=== PATIENT | male | born 1990 | race Caucasian/White ===

== ENCOUNTER 2021-08-18 17:27 | Emergency (ER) | payer OTHER, SELFPAY ==
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
[2021-08-18 17:40] VITALS: BP 140/79; PULSE 79; RESP 18; TEMP 36.4; O2SAT 88; BMI 32.1
[2021-08-18 17:51] VITALS: O2SAT 94
[2021-08-18 18:45] VITALS: PULSE 80; O2SAT 88
[2021-08-18 18:53] LABS: COVID-19 Test Negative (Negative)
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
[2021-08-18] MEDS: Albuterol/Iprat 2.5/0.5MG 3 ML AMPUL.NEB INHALE (19:24)
[2021-08-18 19:27] VITALS: PULSE 80; O2SAT 90
[2021-08-18] MEDS: methylPREDNISolone Sod Succ 125 MG/2 ML VIAL IVPUSH (19:34)
[2021-08-18 19:41] LABS: MANUAL DIFF FLAG NO
[2021-08-18 19:42] LABS: Basophils Absolute Auto 0.1 X10*3/uL (0.0-0.2); Basophils Percent Auto 0.5 % (0-2); Eosinophils Absolute Auto 0.3 X10*3/uL (0.0-0.4); Eosinophils Percent Auto 2.7 % (0-4); Hematocrit 40.6 % (42.0-52.0); Hemoglobin 13.2 g/dl (14.0-18.0); Imm Gran Abs Auto 0.03 X10*3/uL (0.00-0.03); Imm Gran Pct Auto 0.3 % (0.0-0.4); Lymphocytes Absolute Auto 2.2 X10*3/uL (1.2-4.9); Lymphocytes Percent Auto 22.3 % (20-40); Mean Corpuscular HGB Conc 32.5 g/dl (31.0-36.0); Mean Corpuscular Hemoglobin 29.1 pg (27.0-33.0); Mean Corpuscular Volume 89.6 fL (80.0-98.0); Mean Platelet Volume 11.1 fL (9.4-12.4); Monocytes Absolute Auto 0.7 X10*3/uL (0.1-1.2); Monocytes Percent Auto 6.9 % (2-11); Neutrophils Absolute Auto 6.8 x10*3/uL (2.0-8.3); Neutrophils Percent Auto 67.3 % (45-73); Platelet Count 249 X10*3/uL (160-400); Red Blood Count 4.53 X10*6/uL (4.60-5.80); Red Cell Distribution Width 12.3 % (11.0-16.0)
[2021-08-18 19:57] LABS: Lactic Acid 1.2 mmol/L (0.5-2.0)
[2021-08-18 20:05] LABS: Alanine Aminotransferase 19 U/L (0-40); Albumin Level 4.3 g/dL (3.5-5.0); Alkaline Phosphatase 99 U/L (39-117); Anion Gap 13 (12-20); Aspartate Amino Transferase 30 U/L (5-37); Bilirubin Direct 0.2 mg/dL (0.0-0.5); Bilirubin Total 0.5 mg/dL (0.0-1.0); Blood Urea Nitrogen 12 mg/dL (9-16); Calcium 9.2 mg/dL (8.4-10.2); Carbon Dioxide 30 mmol/L (22-29); Chloride 100 mmol/L (96-108); Creatinine Clr Calc Pharmacy 169.9; Estimated Glomerular Filt Rate > 60; Glucose Random 127 mg/dL (60-115); Potassium 4.4 mmol/L (3.3-5.1); Sodium 139 mmol/L (135-145); Total Protein 7.9 g/dL (6.5-8.0)
[2021-08-19 00:18] VITALS: O2SAT 96
== END 2021-08-19 00:38 | disposition home or self-care (01) ==
PROVIDERS: Nurse Practitioner Family; Emergency Provider Internal Medicine
DX: S00.93XA Contusion of unspecified part of head, initial encounter (principal); G44.309 Post-traumatic headache, unspecified, not intractable; M54.6 Pain in thoracic spine; V43.52XA Car driver injured in collision with other type car in traffic accident, initial encounter; Y93.9 Activity, unspecified; Y92.410 Unspecified street and highway as the place of occurrence of the external cause; Y99.9 Unspecified external cause status; Z20.822 Contact with and (suspected) exposure to COVID-19; Z79.899 Other long term (current) drug therapy
CPT/HCPCS: 36415; 70450; 70486; 71250; 72125; 80048; 80076; 83605; 85025; 87040; 87635; 94640; 96374; 99283; 99284; J2930

== ENCOUNTER 2023-06-09 15:56 | Emergency (ER) | payer OTHER, SELFPAY ==
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
[2023-06-09 16:22] VITALS: BP 148/80; PULSE 70; RESP 18; TEMP 36.2; O2SAT 97; BMI 32.1
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
[2023-06-09] MEDS: Cyclobenzaprine HCl 10 MG TABLET PO (19:33)
[2023-06-09] MEDS: Ketorolac Tromethamine 30 MG/ML VIAL IM (19:33)
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
[2023-06-09 20:56] VITALS: BP 115/68; PULSE 62; RESP 18; TEMP 36.6; O2SAT 98
== END 2023-06-09 22:27 | disposition home or self-care (01) ==
PROVIDERS: Emergency Provider Emergency Medicine
DX: S39.012A Strain of muscle, fascia and tendon of lower back, initial encounter (principal); S13.4XXA Sprain of ligaments of cervical spine, initial encounter; M54.2 Cervicalgia; V43.62XA Car passenger injured in collision with other type car in traffic accident, initial encounter; Y93.9 Activity, unspecified; Y92.410 Unspecified street and highway as the place of occurrence of the external cause; Y99.9 Unspecified external cause status; Z79.899 Other long term (current) drug therapy
CPT/HCPCS: 72100; 72125; 96372; 99283; 99284; J1885

== ENCOUNTER 2023-10-02 14:43 | Emergency (ER) | payer OTHER, SELFPAY ==
--- NOTE | ~2023-10-02 | XR_ITS ---
EXAMINATION: XR WRIST, LEFT XR HAND, LEFT CLINICAL INFORMATION: Atherosclerotic. Pain COMPARISON: None available. TECHNIQUE: PA, lateral, and oblique views of the left wrist and PA, lateral, and oblique views of the left hand FINDINGS: 3 views of the left hand and left wrist show no radiopaque foreign body. No fracture, dislocation or destructive process. There does appear to be very mild dorsal soft tissue swelling. XR/XR hand wrist LT IMPRESSION: No osseous abnormalities.
--- NOTE | 2023-10-02 15:49 | ED.GENADULT ---
HPI - General Adult General Chief complaint: Animal Bite Stated complaint: Dog bite L hand red/swollen Time Seen by Provider: 10/02/23 17:19 Source: patient, RN notes reviewed and old records reviewed Mode of arrival: ambulatory History of Present Illness HPI narrative: 33-year-old male with no significant past medical history presenting to the ED complaining of dog bite to left hand 2 days ago with worsening erythema/swelling and discomfort. Reports was bit by brother's dog who is up-to-date on vaccinations. Patient himself is up-to-date on vaccinations. Denies drainage from area, fever/chills, numbness/tingling. Related Data Previous Rx's Medication Instructions Recorded cyclobenzaprine 10 mg tablet 10 mg PO TID PRN muscle spasm #12 08/19/21 tabs ibuprofen 600 mg tablet 600 mg PO Q8H PRN pain #20 tabs 08/19/21 lidocaine 5 % topical patch 1 patch topical DAILY #15 ea 08/19/21 cyclobenzaprine 10 mg tablet 10 mg PO TID PRN muscle spasm #10 06/09/23 tabs amoxicillin 875 mg-potassium 1 tab PO BID 7 days #14 tabs 10/02/23 clavulanate 125 mg tablet Allergies Allergy/AdvReac Type Severity Reaction Status Date / Time acetaminophen [From Tylenol] AdvReac Gastrointestinal Verified 10/02/23 15:52 Upset Review of Systems Review of Systems: Constitutional: No Fever, No Chills ENT/Mouth: No Ear Pain, No Nasal Congestion, No sore throat, No Rhinorrhea, No Swallowing Difficulty Cardiovascular: No Chest Pain, No SOB Respiratory: No Cough Gastrointestinal: No Nausea, No Vomiting, No Abdominal pain Musculoskeletal: + joint pain, No Myalgias, + Joint Swelling Skin: +Skin Lesions, No rash Neuro: No Weakness, No Numbness, No Paresthesias Yes all other systems are reviewed and are negative Constitutional: Constitutional: Reports as per [facility] Past Medical History Attestation statement: The following information was validated with the patient. Source: old records reviewed Medical History Patient denies medical problems Social History Social History Advance Directives: No Advance Directives Information Provided: No Physical Exam ED Vital Signs: Vital Signs - 24 hr 10/02/23 15:50 10/02/23 18:25 Temperature 98.9 F 98.7 F Pulse Rate 71 72 Respiratory Rate 20 18 Blood Pressure 136/85 132/80 Pulse Oximetry 95 98 Oxygen Delivery Method Room Air Room Air BMI result Body Mass Index 30.6 Const General: cooperative, healthy appearing and no acute distress Orientation/consciousness: patient oriented x3 Limitations: no limitations HENMT Head: Yes normal to inspection and Yes atraumatic Ears: hearing grossly normal bilaterally General nose exam: Normal external nose present Face and sinus: Yes normal facial exam Eyes General: appearance normal, both eyes and all related structures EOM: EOMs intact bilaterally Neck Neck: Yes normal visual inspection and Yes no meningeal signs Resp Effort & Inspection: normal respiratory effort and no respiratory distress Cardio Rate: regular rate Peripheral pulses: radial pulses present and ulnar radial pulses present Skin Other: Please refer to image above. Puncture wound noted to 3rd MCP with surrounding erythema extending to wrist. No fluctuance/induration or active drainage. Full range of motion to all digits, wrist, and finger to thumb opposition intact. Neurovascular intact. No streaking/lymphangitis or crepitus Rashes: no rashes Neuro General: patient oriented x3, tone normal and no meningeal signs Cranial nerves: Yes CN's II-XII intact bilaterally Gait exam (Neuro): Normal gait present Extrem General: Yes normal to inspection Course Course Course Narrative: RME:?here w/ dog bite to left hand x2 days. admits to trying to break up a fight between his dog and his brothers dog when his brother's dog bit hit left hand. dogs UTD w/ vaccinations. +puncture wound to base of left 3rd mcp. dorsal left hand erythematous, swollen. no streaking. full rom intact to wrist and hand. finger to thumb opposition intact. Full HPI, ROS and PE to be performed by the primary ED provider. -1721--no leukocytosis. H&H stable. CRP elevated to 7.3 XR hand wrist LT IMPRESSION: No osseous abnormalities. > case discussed with orthopedic on-call, Dr. Valladares who does not cover hand. No hand coverage through the New Year. Will consult [facility] hand to ensure follow-up >> spoke with [facility] plastic surgeon/hand on-call Dr. Reeder, patient can have follow-up outpatient in their office as soon as Friday10/07/23, otherwise strict return precautions discussed with patient and if symptoms persist or worsen, he develops pain/decreased ROM is instructed to go to [facility] ED where they have hand coverage. Dr. Reeder (& team) environmental professional through the weekend. No need for transfer at this time Medical Decision Making Medical Decision Making MDM Narrative: 33-year-old male with no significant past medical history presenting to the ED complaining of dog bite to left hand 2 days ago with worsening erythema/swelling and discomfort. On exam vital signs stable, NAD, nontoxic appearing, physical exam as noted above. Please refer to image. Concern for dog bite with surrounding cellulitis. Lower suspicion for tenosynovitis with full range of motion intact. Unlikely deeper abscess at this time. No evidence of lymphangitis Plan: Labs, lactic/blood cultures, x-ray, orthopedic consult Please refer to course for remaining clinical decision making, interpretation of labs/imaging results, and discussions with consultants and/or family members. Differential Diagnosis Differential Diagnoses: The differential diagnosis associated with the presentation includes As above Admission/Observation Consideration of admission/observation: Escalation of care including admission/observation considered Lab Data [facility] Lab Attestation statement: I reviewed the patient's lab results. 10/02/23 16:57 10/02/23 16:56 Labs: Lab Results 10/02/23 10/02/23 Range/Units 16:56 16:57 WBC 8.5 (4.8-10.8) X10*3/uL RBC 4.48 L (4.60-5.80) X10*6/uL Hgb 13.0 L (14.0-18.0) g/dl Hct 39.9 L (42.0-52.0) % MCV 89.1 (80.0-98.0) fL MCH 29.0 (27.0-33.0) pg MCHC 32.6 (31.0-36.0) g/dl RDW 11.5 (11.0-16.0) % Plt Count 305 (160-400) X10*3/uL MPV 10.6 (9.4-12.4) fL Immature Gran % (Auto) 0.2 (0.0-0.4) % Neut % (Auto) 71.4 (45-73) % Lymph % (Auto) 16.6 L (20-40) % Haines % (Auto) 7.4 (2-11) % Eos % (Auto) 3.9 (0-4) % Baso % (Auto) 0.5 (0-2) % Lymph # (Auto) 1.4 (1.2-4.9) X10*3/uL Haines # (Auto) 0.6 (0.1-1.2) X10*3/uL Eos # (Auto) 0.3 (0.0-0.4) X10*3/uL Baso # (Auto) 0.0 (0.0-0.2) X10*3/uL Abs Immat Gran (auto) 0.02 (0.00-0.03) X10*3/uL Absolute Neuts (auto) 6.1 (2.0-8.3) x10*3/uL Absolute Nucleated RBC 0.000 (0.0-0.012) X10*3/uL Nucleated RBC % (auto) 0.0 (0.0-0.2) /100WBC PT 13.0 (11.1-13.3) SEC INR 1.1 (0.9-1.1) Sodium 137 (135-145) mmol/L Potassium 4.4 (3.3-5.1) mmol/L Chloride 102 (96-108) mmol/L Carbon Dioxide 24 (22-29) mmol/L Anion Gap 15 (12-20) BUN 10 (9-16) mg/dL Creatinine 0.69 (0.5-1.4) mg/dL Estim Creat Clear Calc 179.6 Estimated GFR > 60 Random Glucose 118 H (60-115) mg/dL Lactic Acid 1.2 (0.5-2.0) mmol/L Calcium 9.2 (8.4-10.2) mg/dL Magnesium 1.9 (1.6-2.6) mg/dL Total Bilirubin 0.6 (0.0-1.0) mg/dL AST 22 (5-37) U/L ALT 10 (0-40) U/L Alkaline Phosphatase 67 (39-117) U/L C-Reactive Protein 7.34 H (< or = 0.50) mg/dL Total Protein 8.3 H (6.5-8.0) g/dL Albumin 4.0 (3.5-5.0) g/dL Lipase 10 (8-78) U/L Independent Interpretation I performed an independent interpretation of an: Plain X-Ray Radiology Impression Discussion of test interpretation with radiology: I have reviewed the radiologist's reading. External Record Review External record reviewed: Inpatient record, Office record, Outpatient record, Prior outpatient labs, Prior outpatient radiology, Primary care record and Outside ED record Tests considered The following testing was considered but not selected: As above Prescription Management I considered prescription management with: Pain Medication and Antibiotic Discharge Plan Discharge Clinical Impression: Dog bite, Cellulitis Patient Disposition: Home, Self-Care Instructions: Animal Bite (ED), Cellulitis (DC) Additional Instructions: Dog bites have very high likelihood of getting infected. IF YOU DEVELOP WORSENING REDNESS/SWELLING, DECREASED RANGE OF MOTION/PAIN WITH RANGE OF MOTION, FEVER DRAINAGE RETURN TO THE ED IMMEDIATELY. YOU SHOULD RETURN/GO TO [facility] EMERGENCY DEPARTMENT IF THIS DEVELOPS [place] DOES NOT HAVE HAND COVERAGE WARDROBE COORDINATOR THROUGH THE WEEKEND. We spoke with the hand on-call out operator at [facility]. You can follow-up in their office outpatient. Please call [phone] to establish follow-up for Friday next week Prescriptions: New amoxicillin-pot clavulanate 875-125 mg tablet 1 tab PO BID 7 Days Qty: 14 0RF No Action cyclobenzaprine 10 mg tablet 10 mg PO TID PRN (Reason: muscle spasm) Qty: 12 0RF lidocaine 5 % adhesive patch,medicated 1 patch topical DAILY Qty: 15 0RF Rx Instructions: leave on most painful area for up to 12 hrs ibuprofen 600 mg tablet 600 mg PO Q8H PRN (Reason: pain) Qty: 20 0RF cyclobenzaprine 10 mg tablet 10 mg PO TID PRN (Reason: muscle spasm) Qty: 10 0RF Referrals: [facility] Plastic Surgery [Outside] Eulalia Partida MD [Physician] -
[2023-10-02 15:50] VITALS: BP 136/85; PULSE 71; RESP 20; TEMP 37.2; O2SAT 95; BMI 30.6
[2023-10-02 17:02] LABS: MANUAL DIFF FLAG NO
[2023-10-02 17:03] LABS: Basophils Percent Auto 0.5 % (0-2); Eosinophils Absolute Auto 0.3 X10*3/uL (0.0-0.4); Eosinophils Percent Auto 3.9 % (0-4); Hematocrit 39.9 % (42.0-52.0); Imm Gran Abs Auto 0.02 X10*3/uL (0.00-0.03); Imm Gran Pct Auto 0.2 % (0.0-0.4); Lymphocytes Absolute Auto 1.4 X10*3/uL (1.2-4.9); Lymphocytes Percent Auto 16.6 % (20-40); Mean Corpuscular HGB Conc 32.6 g/dl (31.0-36.0); Mean Corpuscular Volume 89.1 fL (80.0-98.0); Mean Platelet Volume 10.6 fL (9.4-12.4); Monocytes Absolute Auto 0.6 X10*3/uL (0.1-1.2); Monocytes Percent Auto 7.4 % (2-11); Neutrophils Absolute Auto 6.1 x10*3/uL (2.0-8.3); Neutrophils Percent Auto 71.4 % (45-73); Platelet Count 305 X10*3/uL (160-400); Red Blood Count 4.48 X10*6/uL (4.60-5.80); Red Cell Distribution Width 11.5 % (11.0-16.0); White Blood Count 8.5 X10*3/uL (4.8-10.8)
[2023-10-02 17:09] LABS: INTERNATIONAL NORM RATIO 1.1 (0.9-1.1)
[2023-10-02 17:12] LABS: Lactic Acid 1.2 mmol/L (0.5-2.0)
[2023-10-02 17:17] LABS: Alanine Aminotransferase 10 U/L (0-40); Alkaline Phosphatase 67 U/L (39-117); Anion Gap 15 (12-20); Aspartate Amino Transferase 22 U/L (5-37); Bilirubin Total 0.6 mg/dL (0.0-1.0); Blood Urea Nitrogen 10 mg/dL (9-16); C Reactive Protein 7.34 mg/dL (< or = 0.50); Calcium 9.2 mg/dL (8.4-10.2); Carbon Dioxide 24 mmol/L (22-29); Chloride 102 mmol/L (96-108); Creatinine Clr Calc Pharmacy 179.6; Estimated Glomerular Filt Rate > 60; Glucose Random 118 mg/dL (60-115); Lipase 10 U/L (8-78); Magnesium 1.9 mg/dL (1.6-2.6); Potassium 4.4 mmol/L (3.3-5.1); Sodium 137 mmol/L (135-145); Total Protein 8.3 g/dL (6.5-8.0)
--- NOTE | 2023-10-02 17:58 | PC.NURSE ---
tech bedside obtaining 2nd set of cultures.
[2023-10-02 18:25] VITALS: BP 132/80; PULSE 72; RESP 18; TEMP 37.1; O2SAT 98
[2023-10-02 20:59] LABS: Erythrocyte Sedimentation Rate 53 MM/HR (0-15)
== END 2023-10-02 18:58 | disposition home or self-care (01) ==
PROVIDERS: Physician Assistant Medical; Emergency Provider Internal Medicine
DX: S61.452A Open bite of left hand, initial encounter (principal); L03.114 Cellulitis of left upper limb; W54.0XXA Bitten by dog, initial encounter; Y93.9 Activity, unspecified; Y92.9 Unspecified place or not applicable; Y99.9 Unspecified external cause status; Z79.899 Other long term (current) drug therapy
CPT/HCPCS: 36415; 73110; 73130; 80053; 83605; 83690; 83735; 85025; 85610; 85652; 86140; 87040; 99282; 99283

== ENCOUNTER 2023-10-13 18:52 | Emergency (ER) | payer OTHER, SELFPAY ==
--- NOTE | ~2023-10-13 | XR_ITS ---
EXAMINATION: XR CHEST 2 VIEW CLINICAL INFORMATION: Cough, shortness of breath COMPARISON: 03/31/2019 TECHNIQUE: PA and lateral views of the chest obtained. FINDINGS: The lungs are clear. There are no pleural effusions. The cardiomediastinal silhouette is normal. XR/XR chest 2V IMPRESSION: No acute cardiopulmonary disease.
--- NOTE | 2023-10-13 19:36 | ED.GENADULT ---
HPI - General Adult General Chief complaint: Dyspnea Stated complaint: sob Time Seen by Provider: 10/13/23 23:52 Source: patient Mode of arrival: ambulatory Limitations: no limitations History of Present Illness HPI narrative: Patient history of asthma ran out of her inhaler been short of breath and wheezing for last 2 days cough with mucopurulent phlegm with rhinorrhea no fever no chills Related Data Previous Rx's Medication Instructions Recorded cyclobenzaprine 10 mg tablet 10 mg PO TID PRN muscle spasm #12 08/19/21 tabs ibuprofen 600 mg tablet 600 mg PO Q8H PRN pain #20 tabs 08/19/21 lidocaine 5 % topical patch 1 patch topical DAILY #15 ea 08/19/21 cyclobenzaprine 10 mg tablet 10 mg PO TID PRN muscle spasm #10 06/09/23 tabs amoxicillin 875 mg-potassium 1 tab PO BID 7 days #14 tabs 10/02/23 clavulanate 125 mg tablet albuterol sulfate 2.5 mg/3 mL 2.5 mg (3 mL) inhalation Q4-6H PRN 10/14/23 (0.083 %) solution for nebulization shortness of breath or wheezing #90 mL albuterol sulfate 90 mcg/actuation 2 puff inhalation Q4-6H PRN 10/14/23 aerosol inhaler (ProAir HFA) shortness of breath or wheezing #8.5 grams benzonatate 200 mg capsule 200 mg PO TID PRN cough #30 caps 10/14/23 nebulizers #1 ea 10/14/23 prednisone 20 mg tablet 40 mg (2 x 20 mg) PO DAILY #10 tabs 10/14/23 Allergies Allergy/AdvReac Type Severity Reaction Status Date / Time acetaminophen [From Tylenol] AdvReac Gastrointestinal Verified 10/13/23 23:57 Upset Review of Systems Review of Systems: Yes all other systems are reviewed and are negative PMFSH Past Medical History Onset Date is defined in the Problem List Problems that require an onset date and time if occurred within 24 hrs of arrival to the ED Aortic Dissection and Rupture; Neurologic impairment; Cardiopulmonary Arrest; Endotracheal Intubation; Insertion or Replacement of Mechanical Circulatory Assist Device Medical History Patient denies medical problems Social History Social History Smoked in Last 30 Days: No Use of substances other than those prescribed or required for medical reasons: No Advance Directives: No Advance Directives Information Provided: No Physical Exam ED Vital Signs: Vital Signs - 24 hr 10/13/23 19:37 10/13/23 23:47 Temperature 98.2 F 98.8 F Pulse Rate 82 88 Respiratory Rate 20 20 Blood Pressure 130/82 123/90 H Pulse Oximetry 92 91 L Oxygen Delivery Method Room Air Room Air BMI result Body Mass Index 28.2 Appearance: Alert. Oriented X3. No acute distress. ENT: Pharynx normal. Oral Mucosa moist clear rhinorrhea Neck: Normal inspection. Neck supple. CVS: Normal heart rate and rhythm. Pulses normal. Respiratory: No respiratory distress. Equal air entry bilateral, bilateral wheezing no rales Abdomen: Soft and nontender. Bowel sounds are present, no mass palpable, no CVA tenderness Skin: Skin warm and dry. Normal skin color. Normal skin turgor. Extremities: No lower extremity edema. No calf tenderness Neuro: Oriented X 3. Course Course Course Narrative: RME performed by Kylee Miller PA-C. Patient is a 33 year old assigned male at presenting to the emergency department with shortness of breath and a cough. Detailed physical exam and review of systems are deferred to the grain weigher. Labs, imaging, and swabs ordered. Patient placed back in the waiting room pending room availability and results. Medications Administered Discontinued Medications Generic Name Dose Route Start Last Admin Trade Name Freq PRN Reason Stop Dose Admin Albuterol Sulfate 5 mg/ 7.5 mg 10/14/23 00:25 10/14/23 00:29 Albuterol Sulfate 2.5 mg INHALE 10/14/23 00:26 7.5 mg ONCE ONE Administration Albuterol Sulfate 2 puff 10/14/23 00:35 10/14/23 00:40 Albuterol Sulfate 90 Mcg 8 Gm Inhaler INHALE 10/14/23 00:36 2 puff ONCE ONE Administration Benzonatate 200 mg 10/14/23 00:12 10/14/23 00:30 Benzonatate 100 Mg Capsule PO 10/14/23 00:13 200 mg ONCE ONE Administration Magnesium Sulfate 2 gm in 50 mls @ 150 mls/hr 10/14/23 00:12 10/14/23 00:50 Magnesium Sulfate/H2o IV 10/14/23 00:31 Infused ONCE ONE Infusion Methylprednisolone Sodium Succinate 125 mg 10/14/23 00:12 10/14/23 00:30 Methylprednisolone Sod Succ 125 Mg/2 Ml Vial IVPUSH 10/14/23 00:13 125 mg ONCE ONE Administration Medical Decision Making Medical Decision Making [facility] Narrative: Patient with history of asthma nonsmoker desaturated to 88% at room air will give him nebulizing treatment reached evaluated. Chest x-ray labs are stable unlikely PE has no risk factors after nebulizing treatment patient is saturating 94% at room air discharge patient home steroids nebulizer and inhaler Differential Diagnosis Differential Diagnoses: The differential diagnosis associated with the presentation includes Asthma/pneumonia/bronchitis Lab Data [facility] Lab Attestation statement: I reviewed the patient's lab results. 10/13/23 20:27 10/13/23 20:27 Labs: Lab Results 10/13/23 Range/Units 20:27 WBC 10.5 (4.8-10.8) X10*3/uL RBC 4.66 (4.60-5.80) X10*6/uL Hgb 13.4 L (14.0-18.0) g/dl Hct 41.2 L (42.0-52.0) % MCV 88.4 (80.0-98.0) fL MCH 28.8 (27.0-33.0) pg MCHC 32.5 (31.0-36.0) g/dl RDW 11.8 (11.0-16.0) % Plt Count 329 (160-400) X10*3/uL MPV 10.6 (9.4-12.4) fL Immature Gran % (Auto) 0.3 (0.0-0.4) % Neut % (Auto) 71.5 (45-73) % Lymph % (Auto) 17.4 L (20-40) % Esmeralda % (Auto) 8.5 (2-11) % Eos % (Auto) 1.8 (0-4) % Baso % (Auto) 0.5 (0-2) % Lymph # (Auto) 1.8 (1.2-4.9) X10*3/uL Esmeralda # (Auto) 0.9 (0.1-1.2) X10*3/uL Eos # (Auto) 0.2 (0.0-0.4) X10*3/uL Baso # (Auto) 0.1 (0.0-0.2) X10*3/uL Abs Immat Gran (auto) 0.03 (0.00-0.03) X10*3/uL Absolute Neuts (auto) 7.5 (2.0-8.3) x10*3/uL Absolute Nucleated RBC 0.000 (0.0-0.012) X10*3/uL Nucleated RBC % (auto) 0.0 (0.0-0.2) /100WBC Sodium 141 (135-145) mmol/L Potassium 4.0 (3.3-5.1) mmol/L Chloride 96 (96-108) mmol/L Carbon Dioxide 28 (22-29) mmol/L Anion Gap 21 H (12-20) BUN 9 (9-16) mg/dL Creatinine 0.76 (0.5-1.4) mg/dL Estim Creat Clear Calc 157.0 Estimated GFR > 60 Random Glucose 141 H (60-115) mg/dL Calcium 10.0 D (8.4-10.2) mg/dL Magnesium 1.8 (1.6-2.6) mg/dL Total Bilirubin 0.8 (0.0-1.0) mg/dL AST 15 (5-37) U/L ALT 7 (0-40) U/L Alkaline Phosphatase 81 (39-117) U/L Troponin I High Sens < 2.7 (<3.5-35.0) ng/L B-Natriuretic Peptide < 10 (<100) pg/mL Total Protein 8.6 H (6.5-8.0) g/dL Albumin 4.0 (3.5-5.0) g/dL Influenza Type A (PCR) NEGATIVE (Negative) Influenza Type B (PCR) NEGATIVE (Negative) RSV RNA Qual (PCR) NEGATIVE (Negative) SARS-CoV-2 RNA (RT-PCR) NEGATIVE (Negative) Discharge Plan Discharge Clinical Impression: Asthma with exacerbation Patient Disposition: Home, Self-Care Instructions: Asthma (ED) Additional Instructions: Nebulizing treatment as advised Prednisone as prescribed Cough drops as prescribed Report to the ER if increased shortness of breath Prescriptions: New (DME) nebulizers Misc See Rx Instructions .Route Qty: 1 0RF Rx Instructions: As directed albuterol sulfate 2.5 mg /3 mL (0.083 %) solution for nebulization 2.5 mg inhalation Q4-6H PRN (Reason: shortness of breath or wheezing) Qty: 90 0RF benzonatate 200 mg capsule 200 mg PO TID PRN (Reason: cough) Qty: 30 0RF prednisone 20 mg tablet 40 mg PO DAILY Qty: 10 0RF albuterol sulfate [ProAir HFA] 90 mcg/actuation HFA aerosol inhaler 2 puff inhalation Q4-6H PRN (Reason: shortness of breath or wheezing) Qty: 8.5 0RF No Action cyclobenzaprine 10 mg tablet 10 mg PO TID PRN (Reason: muscle spasm) Qty: 12 0RF lidocaine 5 % adhesive patch,medicated 1 patch topical DAILY Qty: 15 0RF Rx Instructions: leave on most painful area for up to 12 hrs ibuprofen 600 mg tablet 600 mg PO Q8H PRN (Reason: pain) Qty: 20 0RF amoxicillin-pot clavulanate 875-125 mg tablet 1 tab PO BID 7 Days Qty: 14 0RF cyclobenzaprine 10 mg tablet 10 mg PO TID PRN (Reason: muscle spasm) Qty: 10 0RF
[2023-10-13 19:37] VITALS: BP 130/82; PULSE 82; RESP 20; TEMP 36.8; O2SAT 92; BMI 28.2
--- NOTE | 2023-10-13 19:39 | ECG_ITS ---
Test Reason : SOB Blood Pressure : / mmHG Vent. Rate : 082 BPM Atrial Rate : 082 BPM P-R Int : 148 ms QRS Dur : 088 ms QT Int : 366 ms P-R-T Axes : 050 058 034 degrees QTc Int : 427 ms Normal sinus rhythm Normal ECG No previous ECGs available Referred By: Kylee Miller Electronically Signed By:ASIF FLOWER MD
--- NOTE | 2023-10-13 20:30 | MHC.EDTECH ---
Patient brought into triage area, EKG was taken and signed by provider,labs were obtained and sent to lab.
[2023-10-13 20:35] LABS: MANUAL DIFF FLAG NO
[2023-10-13 20:57] LABS: Basophils Absolute Auto 0.1 X10*3/uL (0.0-0.2); Basophils Percent Auto 0.5 % (0-2); Eosinophils Absolute Auto 0.2 X10*3/uL (0.0-0.4); Eosinophils Percent Auto 1.8 % (0-4); Hematocrit 41.2 % (42.0-52.0); Hemoglobin 13.4 g/dl (14.0-18.0); Imm Gran Abs Auto 0.03 X10*3/uL (0.00-0.03); Imm Gran Pct Auto 0.3 % (0.0-0.4); Lymphocytes Absolute Auto 1.8 X10*3/uL (1.2-4.9); Lymphocytes Percent Auto 17.4 % (20-40); Mean Corpuscular HGB Conc 32.5 g/dl (31.0-36.0); Mean Corpuscular Hemoglobin 28.8 pg (27.0-33.0); Mean Corpuscular Volume 88.4 fL (80.0-98.0); Mean Platelet Volume 10.6 fL (9.4-12.4); Monocytes Absolute Auto 0.9 X10*3/uL (0.1-1.2); Monocytes Percent Auto 8.5 % (2-11); Neutrophils Absolute Auto 7.5 x10*3/uL (2.0-8.3); Neutrophils Percent Auto 71.5 % (45-73); Platelet Count 329 X10*3/uL (160-400); Red Blood Count 4.66 X10*6/uL (4.60-5.80); Red Cell Distribution Width 11.8 % (11.0-16.0); White Blood Count 10.5 X10*3/uL (4.8-10.8)
[2023-10-13 21:02] LABS: Alanine Aminotransferase 7 U/L (0-40); Alkaline Phosphatase 81 U/L (39-117); Anion Gap 21 (12-20); Aspartate Amino Transferase 15 U/L (5-37); Bilirubin Total 0.8 mg/dL (0.0-1.0); Blood Urea Nitrogen 9 mg/dL (9-16); Carbon Dioxide 28 mmol/L (22-29); Chloride 96 mmol/L (96-108); Estimated Glomerular Filt Rate > 60; Glucose Random 141 mg/dL (60-115); Magnesium 1.8 mg/dL (1.6-2.6); Sodium 141 mmol/L (135-145); Total Protein 8.6 g/dL (6.5-8.0)
[2023-10-13 21:06] LABS: B Type Natriuretic Peptide < 10 pg/mL (<100)
[2023-10-13 21:08] LABS: Troponin-I High Sensitivity < 2.7 ng/L (<3.5-35.0)
[2023-10-13 21:21] LABS: Influenza A PCR NEGATIVE (Negative); Influenza B PCR NEGATIVE (Negative); Resp Syncy Virus RNA Qual PCR NEGATIVE (Negative); SARS COV2 PCR INHOUSE NEGATIVE (Negative)
[2023-10-13 23:47] VITALS: BP 123/90; PULSE 88; RESP 20; TEMP 37.1; O2SAT 91
--- NOTE | 2023-10-14 00:04 | PC.NURSE ---
at bedside for primary eval.
--- NOTE | 2023-10-14 00:25 | PC.NURSE ---
IV established, RT at bedside.
[2023-10-14] MEDS: Albuterol Sulfate 5 MG, Albuterol Sulfate (0.083%) 2.5 MG 7.5 MG INHALE (00:29)
[2023-10-14] MEDS: Benzonatate 100 MG CAPSULE 200 MG PO (00:30)
[2023-10-14] MEDS: methylPREDNISolone Sod Succ 125 MG/2 ML VIAL IVPUSH (00:30)
[2023-10-14] MEDS: Magnesium Sulfate/H2O 2 GM/50 ML PIGGYBACK IV (00:30)
--- NOTE | 2023-10-14 00:34 | PC.NURSE ---
Medicated per MAR.
[2023-10-14] MEDS: Albuterol Sulfate 90 MCG 8 GM INHALER 2 PUFF INHALE (00:40)
[2023-10-14 01:56] VITALS: BP 113/79; PULSE 79; RESP 16; O2SAT 93
== END 2023-10-14 01:58 | disposition home or self-care (01) ==
PROVIDERS: Physician Assistant Medical; Emergency Provider Internal Medicine
DX: J45.901 Unspecified asthma with (acute) exacerbation (principal); R06.2 Wheezing; R05.9 Cough, unspecified; R06.02 Shortness of breath; Z20.822 Contact with and (suspected) exposure to COVID-19; Z20.828 Contact with and (suspected) exposure to other viral communicable diseases; Z79.899 Other long term (current) drug therapy
CPT/HCPCS: 0241U; 71046; 80053; 83735; 83880; 84484; 85025; 93005; 96365; 96374; 99284; 99285; J2930; J3475

== ENCOUNTER → 2023-10-13 19:39 | Outpatient (BNV) | payer OTHER, SELFPAY | PROVIDERS: Emergency Provider Internal Medicine; Visit Provider Internal Medicine Cardiovascular Disease | DX: R06.02 Shortness of breath (principal) | CPT/HCPCS: 93010 ==

== ENCOUNTER 2023-11-24 15:02 | Emergency (ER) | payer OTHER, SELFPAY ==
--- NOTE | ~2023-11-24 | XR_ITS ---
EXAMINATION: XR CHEST CLINICAL INFORMATION: Shortness of breath. COMPARISON: Chest radiograph 10/13/2023. TECHNIQUE: 2 views of the chest were obtained. FINDINGS: Normal heart size. Patchy airspace opacities projecting over the right middle lobe. Clear left lung. No pleural effusion or pneumothorax. No acute osseous findings. XR/XR chest 2V IMPRESSION: Patchy airspace opacities in the right middle lobe concerning for aspiration or pneumonia in the appropriate clinical context. Recommend short-term follow-up chest radiograph.
[2023-11-24 15:50] VITALS: BP 124/77; PULSE 72; RESP 16; TEMP 35.9; O2SAT 87; BMI 28.8
--- NOTE | 2023-11-24 15:51 | ED.SOB ---
HPI - SOB/Dyspnea General Chief Complaint: Dyspnea Stated Complaint: DIFF BREATHING Time Seen by Provider: 11/24/23 15:57 Source: patient Mode of arrival: ambulatory Limitations: no limitations History of Present Illness HPI Narrative: Patient is a 33-year-old male who presents to the emergency department for evaluation of shortness of breath productive cough with green phlegm onset of symptoms yesterday. Reports feels consistent with prior asthma exacerbations. He states he has been using his inhalers as prescribed in addition to nebulizer treatments without any improvement. Has not been on any recent steroids, denies any known sick contacts, recent prolonged immobilization or travel, lower extremity redness pain or swelling, chest pain, fevers, chills, numbness or tingling of the extremities. Initial triage with O2 saturation 87% on room air. Related Data Previous Rx's Medication Instructions Recorded cyclobenzaprine 10 mg tablet 10 mg PO TID PRN muscle spasm #12 08/19/21 tabs ibuprofen 600 mg tablet 600 mg PO Q8H PRN pain #20 tabs 08/19/21 lidocaine 5 % topical patch 1 patch topical DAILY #15 ea 08/19/21 cyclobenzaprine 10 mg tablet 10 mg PO TID PRN muscle spasm #10 06/09/23 tabs amoxicillin 875 mg-potassium 1 tab PO BID 7 days #14 tabs 10/02/23 clavulanate 125 mg tablet albuterol sulfate 2.5 mg/3 mL 2.5 mg (3 mL) inhalation Q4-6H PRN 10/14/23 (0.083 %) solution for nebulization shortness of breath or wheezing #90 mL albuterol sulfate 90 mcg/actuation 2 puff inhalation Q4-6H PRN 10/14/23 aerosol inhaler (ProAir HFA) shortness of breath or wheezing #8.5 grams benzonatate 200 mg capsule 200 mg PO TID PRN cough #30 caps 10/14/23 nebulizers #1 ea 10/14/23 prednisone 20 mg tablet 40 mg (2 x 20 mg) PO DAILY #10 tabs 10/14/23 cefpodoxime 200 mg tablet 200 mg PO BID #14 tabs 11/24/23 prednisone 20 mg tablet 40 mg (2 x 20 mg) PO DAILY 4 days 11/24/23 #8 tabs Allergies Allergy/AdvReac Type Severity Reaction Status Date / Time acetaminophen [From Tylenol] AdvReac Gastrointestinal Verified 10/13/23 23:57 Upset Review of Systems Review of Systems: Yes all other systems are reviewed and are negative [facility] Past Medical History Attestation statement: The following information was validated with the patient. Source: old records reviewed Medical History Patient denies medical problems Social History Social History Smoked in Last 30 Days: No Advance Directives: No Advance Directives Information Provided: No Physical Exam Vital Signs: Vital Signs: Last Vital Signs Temp 98.1 F 11/24/23 20:24 Pulse 87 11/24/23 20:24 Resp 16 11/24/23 20:24 BP 133/65 11/24/23 20:24 Pulse Ox 98 11/24/23 20:24 O2 Del Method Room Air 11/24/23 20:24 O2 Flow Rate 2 11/24/23 18:10 BMI result Body Mass Index 28.8 Appearance: Alert.?Oriented to person, place and time. No acute distress.?Normal affect. Eyes: Pupils equal, round and reactive to light.? ENT: Pharynx normal.?? Neck: Normal inspection.? Neck supple.?? CVS: Heart sounds normal. Normal heart rate and rhythm.? Pulses normal.?? Respiratory: No respiratory distress.? Lung sounds with inspiratory and expiratory wheezing bilaterally Abdomen: Soft and non-tender. Normoactive bowel sounds. ? Skin: Skin warm and dry.? Normal skin color.? ? Extremities: No lower extremity edema.? No calf ttp? Neuro: Moves all extremities spontaneously. Sensation intact bilaterally.No focal neuro deficits. Ambulates with normal steady gait. Course Course Course Narrative: RME: 33 year-old M w/ PMHx asthma presenting to the ED c/o SOB & productive cough x yesterday. has been using neb w/o relief. denies recent steroids, travel, CP Satting 88% on RA, audible wheeze EKG, Labs, CXR, Viral studies Full HPI, ROS and PE to be performed by primary ED provider. Reevaluation(s) Reevaluation #1: Lung sounds with decreased wheezing, patient subjectively feels much better at this time. CBC is without leukocytosis, very mild normocytic anemia that does not meet transfusion criteria. CMP overall unremarkable. BNP within normal range, no evidence of CHF. Influenza/COVID-19/RSV testing negative. High sensitive troponin below detectable limits, EKG revealing a normal sinus rhythm, no ST elevation, no ST depression ventricular rate of 86, prolonged QTc 473. Chest x-ray concerning for right middle lobe pneumonia which appears new when compared to prior CXR in October 2023, received 1 dose of Rocephin while in the emergency department. Time: 18:58 Reevaluation #2: Patient has decided to leave against medical advice, discussed severity of illness, hypoxia which can be life-threatening, he is noted to be with O2 90% on room air, drops down to high 80s with exertion. Per patient this is baseline for the past 4 years, followed by pulmonology at [facility], reports that he feels at his baseline, and will return with any new or worsening symptoms or concerns. Time: 20:15 Medications Administered Discontinued Medications Generic Name Dose Route Start Last Admin Trade Name Rikiq PRN Reason Stop Dose Admin Albuterol Sulfate 5 mg 11/24/23 18:12 11/24/23 18:19 Albuterol Sulfate (0.083%) 2.5 Mg/3 Ml Vial.Neb INHALE 11/24/23 18:13 5 mg ONCE ONE Administration Albuterol Sulfate 5 mg/ 0 mg 11/24/23 16:03 11/24/23 16:06 Albuterol/Ipratropium 3 ml INHALE 11/24/23 16:04 7.5 each ONCE ONE Administration Ceftriaxone Sodium 1 gm/ 50 mls @ 100 mls/hr 11/24/23 18:55 11/24/23 20:03 Sodium Chloride IV 11/24/23 19:24 Infused ONCE ONE Infusion Methylprednisolone Sodium Succinate 125 mg 11/24/23 16:59 11/24/23 17:30 Methylprednisolone Sod Succ 125 Mg/2 Ml Vial IVPUSH 11/24/23 17:00 125 mg ONCE ONE Administration Medical Decision Making Medical Decision Making [facility] Narrative: Patient is a 33-year-old male who presents emergency department for evaluation of shortness of breath and cough with symptom onset yesterday. Arrived hypoxic which did improve with application of O2 via nasal cannula and room air saturations improved after DuoNeb nebulizer. Presented with significant inspiratory and expiratory wheezing. Will obtain CBC to evaluate for leukocytosis/ anemia, CMP and lipase to evaluate for abnormal electrolytes /abnormal renal function/ abnormal hepatic/biliary function, EKG and troponin to evaluate for ischemia/ACS. Chest x-ray to evaluate for consolidation/ infiltrate/ mass/ pulmonary congestion and viral testing. Differential Diagnosis Differential Diagnoses: The differential diagnosis associated with the presentation includes (Asthma exacerbation, viral syndrome, pneumonia. Less likely ACS no risk factors, wells negative unlikely PE) Admission/Observation Consideration of admission/observation: Escalation of care including admission/observation considered Lab Data MDM Lab Attestation statement: I reviewed the patient's lab results. (See course narrative) \ 11/24/23 16:12 11/24/23 16:12 Labs: Lab Results 11/24/23 11/24/23 Range/Units 16:12 16:26 WBC 7.7 (4.8-10.8) X10*3/uL RBC 4.50 L (4.60-5.80) X10*6/uL Hgb 13.0 L (14.0-18.0) g/dl Hct 38.9 L (42.0-52.0) % MCV 86.4 (80.0-98.0) fL MCH 28.9 (27.0-33.0) pg MCHC 33.4 (31.0-36.0) g/dl RDW 12.7 (11.0-16.0) % Plt Count 318 (160-400) X10*3/uL MPV 10.5 (9.4-12.4) fL Immature Gran % (Auto) 0.3 (0.0-0.4) % Neut % (Auto) 68.3 (45-73) % Lymph % (Auto) 17.7 L (20-40) % [place] % (Auto) 7.6 (2-11) % Eos % (Auto) 5.3 H (0-4) % Baso % (Auto) 0.8 (0-2) % Lymph # (Auto) 1.4 (1.2-4.9) X10*3/uL [place] # (Auto) 0.6 (0.1-1.2) X10*3/uL Eos # (Auto) 0.4 (0.0-0.4) X10*3/uL Baso # (Auto) 0.1 (0.0-0.2) X10*3/uL Abs Immat Gran (auto) 0.02 (0.00-0.03) X10*3/uL Absolute Neuts (auto) 5.3 (2.0-8.3) x10*3/uL Absolute Nucleated RBC 0.000 (0.0-0.012) X10*3/uL Nucleated RBC % (auto) 0.0 (0.0-0.2) /100WBC PT 14.9 H (11.1-13.3) SEC INR 1.2 H (0.9-1.1) Sodium 136 (135-145) mmol/L Potassium 3.6 (3.3-5.1) mmol/L Chloride 99 (96-108) mmol/L Carbon Dioxide 28 (22-29) mmol/L Anion Gap 13 (12-20) BUN 8 L (9-16) mg/dL Creatinine 0.68 (0.5-1.4) mg/dL Estim Creat Clear Calc 177.2 Estimated GFR > 60 Random Glucose 114 (60-115) mg/dL Calcium 9.4 (8.4-10.2) mg/dL Total Bilirubin 0.7 (0.0-1.0) mg/dL Direct Bilirubin 0.3 (0.0-0.5) mg/dL AST 16 (5-37) U/L ALT 7 (0-40) U/L Alkaline Phosphatase 71 (39-117) U/L Troponin I High Sens < 2.7 (<3.5-35.0) ng/L B-Natriuretic Peptide 25 (<100) pg/mL Total Protein 7.9 (6.5-8.0) g/dL Albumin 3.9 (3.5-5.0) g/dL Influenza Type A (PCR) NEGATIVE (Negative) Influenza Type B (PCR) NEGATIVE (Negative) RSV RNA Qual (PCR) NEGATIVE (Negative) SARS-CoV-2 RNA (RT-PCR) NEGATIVE (Negative) Independent Interpretation I performed an independent interpretation of an: Plain X-Ray (Right middle lobe opacity concerning for pneumonia) Radiology Impression Discussion of test interpretation with radiology: I have reviewed the radiologist's reading. Radiologist Impression: XR/XR chest 2V IMPRESSION: Patchy airspace opacities in the right middle lobe concerning for aspiration or pneumonia in the appropriate clinical context. Recommend short-term follow-up chest radiograph. External Record Review External record reviewed: Outpatient record Prescription Management I considered prescription management with: Antibiotic Critical Care Time Critical Care Time Critical Care Time: Yes Total Critical Care Time: 45 Attestation: I personally attest to this critical care time spent taking care of the patient exclusive of all other billable procedures was approximately 45 minutes including initial evaluation of patient, ordering tests, x-ray interpretation, EKG interpretation, medical consultation, documentation, re-evaluation. Discharge Plan Discharge Clinical Impression: Community acquired pneumonia Patient Disposition: Left Against Medical Advice Instructions: Community Acquired Pneumonia (ED) Additional Instructions: It was recommended that you remain in the emergency department for further evaluation of your oxygen saturation you however decided to leave against medical advice. It is imperative that you follow-up closely with your drive away driver. Return back to emergency department with any new or worsening symptoms or concerns. Complete the entire course of antibiotics as prescribed. Prescriptions: New cefpodoxime 200 mg tablet 200 mg PO BID Qty: 14 0RF Rx Instructions: must administer with a meal/food prednisone 20 mg tablet 40 mg PO DAILY 4 Days Qty: 8 0RF No Action cyclobenzaprine 10 mg tablet 10 mg PO TID PRN (Reason: muscle spasm) Qty: 12 0RF lidocaine 5 % adhesive patch,medicated 1 patch topical DAILY Qty: 15 0RF Rx Instructions: leave on most painful area for up to 12 hrs ibuprofen 600 mg tablet 600 mg PO Q8H PRN (Reason: pain) Qty: 20 0RF amoxicillin-pot clavulanate 875-125 mg tablet 1 tab PO BID 7 Days Qty: 14 0RF cyclobenzaprine 10 mg tablet 10 mg PO TID PRN (Reason: muscle spasm) Qty: 10 0RF (DME) nebulizers Misc See Rx Instructions .Route Qty: 1 0RF Rx Instructions: As directed albuterol sulfate 2.5 mg /3 mL (0.083 %) solution for nebulization 2.5 mg inhalation Q4-6H PRN (Reason: shortness of breath or wheezing) Qty: 90 0RF benzonatate 200 mg capsule 200 mg PO TID PRN (Reason: cough) Qty: 30 0RF prednisone 20 mg tablet 40 mg PO DAILY Qty: 10 0RF albuterol sulfate [ProAir HFA] 90 mcg/actuation HFA aerosol inhaler 2 puff inhalation Q4-6H PRN (Reason: shortness of breath or wheezing) Qty: 8.5 0RF Stand Alone Forms: Against Medical Advice Interventions: ED Discharge Assessment Last Done: 11/24/23 20:24 Discharge Date/Time: 11/24/23 20:26
--- NOTE | 2023-11-24 15:53 | ECG_ITS ---
Test Reason : SOB Blood Pressure : / mmHG Vent. Rate : 086 BPM Atrial Rate : 086 BPM P-R Int : 152 ms QRS Dur : 096 ms QT Int : 396 ms P-R-T Axes : 066 063 025 degrees QTc Int : 473 ms Normal sinus rhythm Possible Left atrial enlargement Nonspecific T wave abnormality Prolonged QT Abnormal ECG When compared with ECG of 13-OCT-2023 20:20, No significant change was found Referred By: Hannah Alonso Electronically Signed By:ASIF FLOWER MD
[2023-11-24] MEDS: Albuterol Sulfate 5 MG, Albuterol/Iprat 2.5/0.5MG 3 ML 3 ML INHALE (16:06)
[2023-11-24 16:09] VITALS: PULSE 73; RESP 22; O2SAT 93
[2023-11-24 16:17] LABS: MANUAL DIFF FLAG NO
[2023-11-24 16:18] LABS: Basophils Absolute Auto 0.1 X10*3/uL (0.0-0.2); Basophils Percent Auto 0.8 % (0-2); Eosinophils Absolute Auto 0.4 X10*3/uL (0.0-0.4); Eosinophils Percent Auto 5.3 % (0-4); Hematocrit 38.9 % (42.0-52.0); Imm Gran Abs Auto 0.02 X10*3/uL (0.00-0.03); Imm Gran Pct Auto 0.3 % (0.0-0.4); Lymphocytes Absolute Auto 1.4 X10*3/uL (1.2-4.9); Lymphocytes Percent Auto 17.7 % (20-40); Mean Corpuscular HGB Conc 33.4 g/dl (31.0-36.0); Mean Corpuscular Hemoglobin 28.9 pg (27.0-33.0); Mean Corpuscular Volume 86.4 fL (80.0-98.0); Mean Platelet Volume 10.5 fL (9.4-12.4); Monocytes Absolute Auto 0.6 X10*3/uL (0.1-1.2); Monocytes Percent Auto 7.6 % (2-11); Neutrophils Absolute Auto 5.3 x10*3/uL (2.0-8.3); Neutrophils Percent Auto 68.3 % (45-73); Platelet Count 318 X10*3/uL (160-400); Red Cell Distribution Width 12.7 % (11.0-16.0); White Blood Count 7.7 X10*3/uL (4.8-10.8)
[2023-11-24 16:24] LABS: INTERNATIONAL NORM RATIO 1.2 (0.9-1.1); Prothrombin Time 14.9 SEC (11.1-13.3)
[2023-11-24 16:32] LABS: Alanine Aminotransferase 7 U/L (0-40); Albumin Level 3.9 g/dL (3.5-5.0); Alkaline Phosphatase 71 U/L (39-117); Anion Gap 13 (12-20); Aspartate Amino Transferase 16 U/L (5-37); Bilirubin Direct 0.3 mg/dL (0.0-0.5); Bilirubin Total 0.7 mg/dL (0.0-1.0); Blood Urea Nitrogen 8 mg/dL (9-16); Calcium 9.4 mg/dL (8.4-10.2); Carbon Dioxide 28 mmol/L (22-29); Chloride 99 mmol/L (96-108); Creatinine Clr Calc Pharmacy 177.2; Estimated Glomerular Filt Rate > 60; Glucose Random 114 mg/dL (60-115); Potassium 3.6 mmol/L (3.3-5.1); Sodium 136 mmol/L (135-145); Total Protein 7.9 g/dL (6.5-8.0)
[2023-11-24 16:37] LABS: B Type Natriuretic Peptide 25 pg/mL (<100)
[2023-11-24 16:39] LABS: Troponin-I High Sensitivity < 2.7 ng/L (<3.5-35.0)
[2023-11-24 16:59] VITALS: BP 113/66; PULSE 95; RESP 17; TEMP 36.4; O2SAT 93
[2023-11-24 17:07] LABS: Influenza A PCR NEGATIVE (Negative); Influenza B PCR NEGATIVE (Negative); Resp Syncy Virus RNA Qual PCR NEGATIVE (Negative); SARS COV2 PCR INHOUSE NEGATIVE (Negative)
[2023-11-24] MEDS: methylPREDNISolone Sod Succ 125 MG/2 ML VIAL IVPUSH (17:30)
[2023-11-24 18:10] VITALS: BP 106/61; PULSE 80; RESP 16; TEMP 36.6; O2SAT 95
[2023-11-24] MEDS: Albuterol Sulfate (0.083%) 2.5 MG/3 ML VIAL.NEB 5 MG INHALE (18:19)
[2023-11-24 18:20] VITALS: PULSE 75; RESP 18; O2SAT 95
--- NOTE | 2023-11-24 18:48 | PC.NURSE ---
patient was removed frmom o2 aprox 10 min ago after neb treatment, patient desat down to 85% on room air, patient placed back on 2l NC.
[2023-11-24] MEDS: cefTRIAXone sodium 1 GM in 0.9 % Sodium Chloride 50 ML IV (19:21)
--- NOTE | 2023-11-24 19:22 | PC.NURSE ---
spoke to provider and she reports no need for blood cultures or lactic at this time prior to antibiotics
[2023-11-24 20:24] VITALS: BP 133/65; PULSE 87; RESP 16; TEMP 36.7; O2SAT 98
== END 2023-11-24 20:26 | disposition left against medical advice (07) ==
PROVIDERS: Physician Assistant; Emergency Provider Student in an Organized Health Care Education/Training Program
DX: J18.9 Pneumonia, unspecified organism (principal); R06.02 Shortness of breath; R05.9 Cough, unspecified; R94.31 Abnormal electrocardiogram [ECG] [EKG]; Z20.828 Contact with and (suspected) exposure to other viral communicable diseases; Z11.52 Encounter for screening for COVID-19; Z79.899 Other long term (current) drug therapy
CPT/HCPCS: 0241U; 71046; 80048; 80076; 83880; 84484; 85025; 85610; 93005; 94640; 96365; 96375; 99284; 99285; J0696; J2930

== ENCOUNTER → 2023-11-24 15:53 | Outpatient (BNV) | payer OTHER, SELFPAY | PROVIDERS: Emergency Provider Student in an Organized Health Care Education/Training Program; Visit Provider Internal Medicine Cardiovascular Disease | DX: R94.31 Abnormal electrocardiogram [ECG] [EKG] (principal) | CPT/HCPCS: 93010 ==

== ENCOUNTER 2023-12-16 17:16 | Emergency (ER) | payer OTHER, SELFPAY ==
--- NOTE | 2023-12-16 | ECG_ITS ---
Test Reason : PNEUMONIA,DYSPNEA,WHEEZING Blood Pressure : / mmHG Vent. Rate : 072 BPM Atrial Rate : 072 BPM P-R Int : 162 ms QRS Dur : 092 ms QT Int : 386 ms P-R-T Axes : 049 058 027 degrees QTc Int : 422 ms Normal sinus rhythm Normal ECG When compared with ECG of 24-NOV-2023 16:20, Nonspecific T wave abnormality no longer evident in Anterior leads QT has shortened Referred By: Generic ED Physician Electronically Signed By:ASIF FLOWER MD
--- NOTE | ~2023-12-16 | XR_ITS ---
EXAMINATION: XR CHEST CLINICAL INFORMATION: Pneumonia. Wheezing. COMPARISON: Chest radiographs dated 11/24/2023. TECHNIQUE: 2 views of the chest were obtained. FINDINGS: Heart size remains normal. The previously described right middle lobe opacities are not clearly seen on today's exam. There is no pleural effusion or pneumothorax. No acute osseous abnormality. XR/XR chest 2V IMPRESSION: No acute cardiopulmonary disease.
[2023-12-16 21:38] VITALS: BP 122/82; PULSE 83; RESP 18; TEMP 36.5; O2SAT 87; BMI 29.3
[2023-12-16 21:57] VITALS: BP 138/86; PULSE 77; RESP 22; TEMP 37.2; O2SAT 88
--- NOTE | 2023-12-16 23:10 | ED.ASTHMA ---
HPI - Asthma General Chief Complaint: Upper Respiratory Symptoms Stated Complaint: cough patient ? pneumonia fevers Time Seen by Provider: 12/16/23 22:56 Source: patient and old records reviewed Mode of arrival: ambulatory Limitations: no limitations History of Present Illness HPI Narrative: 33 yo male with PMH of asthma no prior intubations follows with pulmonology ran out of nebulizer liquids states he has sinus pressure and congestion x 2 days then started with wheezing. He also tells me his normal O2 sat is 89%. He notes no CP. He was found to be 81% on RA while waiting in treatment room and placed on 2L NC. He agrees to stay for treatments at this time in ED. He left AMA on 11/24 for CAP and was sent home on prednisone and doxycycline. MD complaint: asthma attack and wheezing Onset (ago): day(s) (2) Severity: moderate Context: recent URI and ran out of meds Associated symptoms: dry cough Asthma History: childhood onset Treatments Prior to Arrival: inhaled bronchodilator Related Data Previous Rx's Medication Instructions Recorded cyclobenzaprine 10 mg tablet 10 mg PO TID PRN muscle spasm #12 08/19/21 tabs ibuprofen 600 mg tablet 600 mg PO Q8H PRN pain #20 tabs 08/19/21 lidocaine 5 % topical patch 1 patch topical DAILY #15 ea 08/19/21 cyclobenzaprine 10 mg tablet 10 mg PO TID PRN muscle spasm #10 06/09/23 tabs amoxicillin 875 mg-potassium 1 tab PO BID 7 days #14 tabs 10/02/23 clavulanate 125 mg tablet albuterol sulfate 2.5 mg/3 mL 2.5 mg (3 mL) inhalation Q4-6H PRN 10/14/23 (0.083 %) solution for nebulization shortness of breath or wheezing #90 mL albuterol sulfate 90 mcg/actuation 2 puff inhalation Q4-6H PRN 10/14/23 aerosol inhaler (ProAir HFA) shortness of breath or wheezing #8.5 grams benzonatate 200 mg capsule 200 mg PO TID PRN cough #30 caps 10/14/23 nebulizers #1 ea 10/14/23 prednisone 20 mg tablet 40 mg (2 x 20 mg) PO DAILY #10 tabs 10/14/23 cefpodoxime 200 mg tablet 200 mg PO BID #14 tabs 11/24/23 prednisone 20 mg tablet 40 mg (2 x 20 mg) PO DAILY 4 days 11/24/23 #8 tabs albuterol sulfate 2.5 mg/3 mL 2.5 mg (3 mL) inhalation Q4-6H PRN 12/17/23 (0.083 %) solution for nebulization bronchospasm #75 mL doxycycline hyclate 100 mg capsule 100 mg PO BID 7 days #14 caps 12/17/23 prednisone 20 mg tablet 40 mg (2 x 20 mg) PO DAILY 5 days 12/17/23 #10 tabs Allergies Allergy/AdvReac Type Severity Reaction Status Date / Time acetaminophen [From Tylenol] AdvReac Gastrointestinal Verified 12/16/23 21:42 Upset Review of Systems Review of Systems: Constitutional : No Fever, No Chills ENT/Mouth : No Hoarseness, No sore throat, pos Rhinorrhea Eyes: No Redness, No Discharge, No Vision Changes Cardiovascular : No Chest Pain, positive SOB, positive Dyspnea on Exertion, No Edema Respiratory : positive Cough, No Sputum, positive Wheezing, Gastrointestinal : No Nausea, No Vomiting, No Diarrhea, No abdominal Pain Genitourinary : No Dysuria, No Hematuria Musculoskeletal : No joint pain, No Myalgias Skin : No rash Neuro : No Weakness, No Numbness, No Headache Psych : No anxiety, depression All other systems reviewed and are negative [facility], [facility] Past Medical History Attestation statement: The following information was validated with the patient. Source: old records reviewed Medical History Patient denies medical problems Social History Social History (Updated 12/16/23 @ 23:22 by Annie Nguyễn DO) Patient Tobacco Use Status: Former Tobacco user Advance Directives: No Advance Directives Information Provided: No Physical Exam Vital Signs: Vital Signs: Last Vital Signs Temp 98.2 F 12/17/23 01:08 Pulse 82 12/17/23 01:08 Resp 20 12/17/23 01:08 BP 100/50 L 12/17/23 01:08 Pulse Ox 94 12/17/23 01:08 O2 Del Method Room Air, Nasal C annula 12/17/23 01:08 O2 Flow Rate 2 12/17/23 01:08 BMI result Body Mass Index 29.3 Appearance: Alert. Oriented X3. No acute distress. Eyes: Pupils equal, round and reactive to light. ENT: Pharynx normal. Neck: Normal inspection. Neck supple. CVS: Normal heart rate and rhythm. Pulses normal. Respiratory: No respiratory distress. Breath sounds moderate diffuse insp and exp wheeze Abdomen: Soft and nontender. Skin: Skin warm and dry. Normal skin color. Normal skin turgor. Extremities: No lower extremity edema. No calf ttp Neuro: Oriented X 3. No motor deficit. No sensory deficit. Medications Administered Discontinued Medications Generic Name Dose Route Start Last Admin Trade Name Freq PRN Reason Stop Dose Admin Albuterol Sulfate 5 mg/ 7.5 mg 12/16/23 23:56 12/16/23 23:59 Albuterol Sulfate 2.5 mg INHALE 12/16/23 23:57 7.5 mg ONCE ONE Administration Albuterol Sulfate 7.5 mg/ 0 mg 12/16/23 23:13 12/16/23 23:15 Albuterol/Ipratropium 3 ml INHALE 12/16/23 23:14 2.5 each ONCE ONE Administration Magnesium Sulfate 2 gm in 50 mls @ 150 mls/hr 12/16/23 22:57 12/16/23 23:45 Magnesium Sulfate/H2o IV 12/16/23 23:16 Infused ONCE ONE Infusion Methylprednisolone Sodium Succinate 125 mg 12/16/23 22:57 12/16/23 23:15 Methylprednisolone Sod Succ 125 Mg/2 Ml Vial IVPUSH 12/16/23 22:58 125 mg ONCE ONE Administration Medical Decision Making Medical Decision Making MDM Narrative: 33 yo male with PMH of lonstanding asthma states his saturations at baseline are 89% here with c/o sinus disease and asthma exacerbation x 2 days. He was found to have a sat of 81% on RA while in treatment room. He was placed on O2 and started on IV magnesium, IV steroids, labs CXR and swab. He has left AMA before he might again. Will attempt to get him better vs admit pending O2 level and improvement Differential Diagnosis Differential Diagnoses: The differential diagnosis associated with the presentation includes asthma, bronchitis, sinusitis Admission/Observation Consideration of admission/observation: Escalation of care including admission/observation considered he refuses admission despite low O2 which I explained he is aware he can come back at any time alert and oriented not confused sat 91% on RA. He is calm and cooperative. does not appear under the influence. Lab Data MDM Lab Attestation statement: I reviewed the patient's lab results. 12/16/23 23:13 12/16/23 23:13 Labs: Lab Results 12/16/23 12/16/23 Range/Units 23:13 23:38 WBC 8.7 (4.8-10.8) X10*3/uL RBC 4.39 L (4.60-5.80) X10*6/uL Hgb 12.6 L (14.0-18.0) g/dl Hct 38.4 L (42.0-52.0) % MCV 87.5 (80.0-98.0) fL MCH 28.7 (27.0-33.0) pg MCHC 32.8 (31.0-36.0) g/dl RDW 13.1 (11.0-16.0) % Plt Count 318 (160-400) X10*3/uL MPV 10.4 (9.4-12.4) fL Immature Gran % (Auto) 0.1 (0.0-0.4) % Neut % (Auto) 58.7 (45-73) % Lymph % (Auto) 27.6 (20-40) % [place] % (Auto) 8.3 (2-11) % Eos % (Auto) 4.6 H (0-4) % Baso % (Auto) 0.7 (0-2) % Lymph # (Auto) 2.4 (1.2-4.9) X10*3/uL [place] # (Auto) 0.7 (0.1-1.2) X10*3/uL Eos # (Auto) 0.4 (0.0-0.4) X10*3/uL Baso # (Auto) 0.1 (0.0-0.2) X10*3/uL Abs Immat Gran (auto) 0.01 (0.00-0.03) X10*3/uL Absolute Neuts (auto) 5.1 (2.0-8.3) x10*3/uL Absolute Nucleated RBC 0.000 (0.0-0.012) X10*3/uL Nucleated RBC % (auto) 0.0 (0.0-0.2) /100WBC Sodium 141 (135-145) mmol/L Potassium 4.1 (3.3-5.1) mmol/L Chloride 102 (96-108) mmol/L Carbon Dioxide 30 H (22-29) mmol/L Anion Gap 13 (12-20) BUN 8 L (9-16) mg/dL Creatinine 0.63 (0.5-1.4) mg/dL Estim Creat Clear Calc 192.7 Estimated GFR > 60 Random Glucose 74 (60-115) mg/dL Calcium 9.7 (8.4-10.2) mg/dL Magnesium 1.9 (1.6-2.6) mg/dL Total Bilirubin 0.4 (0.0-1.0) mg/dL Direct Bilirubin 0.2 (0.0-0.5) mg/dL AST 17 (5-37) U/L ALT 9 (0-40) U/L Alkaline Phosphatase 75 (39-117) U/L Total Protein 7.6 (6.5-8.0) g/dL Albumin 3.9 (3.5-5.0) g/dL Urine Opiates Screen POSITIVE H (Not Detect) Urine Fentanyl Screen POSITIVE H (Not Detect) Ur Barbiturates Screen Not Detected (Not Detect) Ur Phencyclidine Scrn Not Detected (Not Detect) Ur Amphetamines Screen Not Detected (Not Detect) U Benzodiazepines Scrn Not Detected (Not Detect) Urine Cocaine Screen POSITIVE H (Not Detect) U Marijuana (THC) Screen Not Detected (Not Detect) Ethyl Alcohol < 10 mg/dL Influenza Type A (PCR) NEGATIVE (Negative) Influenza Type B (PCR) NEGATIVE (Negative) RSV RNA Qual (PCR) NEGATIVE (Negative) SARS-CoV-2 RNA (RT-PCR) NEGATIVE (Negative) Independent Interpretation I performed an independent interpretation of an: Plain X-Ray (no pneumonia) Radiology Impression Discussion of test interpretation with radiology: I have reviewed the radiologist's reading. External Record Review External record reviewed: Inpatient record Prescription Management I considered prescription management with: Antibiotic and Other Critical Care Time Critical Care Time Critical Care Time: Yes Total Critical Care Time: 45 Attestation: IV magnesium, repeat hour long nebs, reassessments, review of records I attest to this time spent taking care of the patient Discharge Plan Discharge Clinical Impression: Bronchitis Asthma attack Qualifiers: Asthma severity: severe Asthma persistence: persistent Qualified Code(s): J45.51 - Severe persistent asthma with (acute) exacerbation Patient Disposition: Home, Self-Care Instructions: Asthma (ED), Acute Bronchitis (ED) Additional Instructions: ou were offered admission but refused. you can return at any time. return for worsening breathing or any other concerns. On doxycycline, do not take pills immediately before going to bed and swallow pills with plenty of water. Avoid direct sunlight, iron, antacids, and Pepto Bismol. Call your provider if you develop new ringing in your ears, new problems hearing, dizziness, difficulty swallowing, rash, abdominal discomfort, nausea, or diarrhea.? Prescriptions: New doxycycline hyclate 100 mg capsule 100 mg PO BID 7 Days Qty: 14 0RF albuterol sulfate 2.5 mg /3 mL (0.083 %) solution for nebulization 2.5 mg inhalation Q4-6H PRN (Reason: bronchospasm) Qty: 75 0RF prednisone 20 mg tablet 40 mg PO DAILY 5 Days Qty: 10 0RF No Action cyclobenzaprine 10 mg tablet 10 mg PO TID PRN (Reason: muscle spasm) Qty: 12 0RF lidocaine 5 % adhesive patch,medicated 1 patch topical DAILY Qty: 15 0RF Rx Instructions: leave on most painful area for up to 12 hrs ibuprofen 600 mg tablet 600 mg PO Q8H PRN (Reason: pain) Qty: 20 0RF amoxicillin-pot clavulanate 875-125 mg tablet 1 tab PO BID 7 Days Qty: 14 0RF cefpodoxime 200 mg tablet 200 mg PO BID Qty: 14 0RF Rx Instructions: must administer with a meal/food prednisone 20 mg tablet 40 mg PO DAILY 4 Days Qty: 8 0RF cyclobenzaprine 10 mg tablet 10 mg PO TID PRN (Reason: muscle spasm) Qty: 10 0RF (DME) nebulizers Misc See Rx Instructions .Route Qty: 1 0RF Rx Instructions: As directed albuterol sulfate 2.5 mg /3 mL (0.083 %) solution for nebulization 2.5 mg inhalation Q4-6H PRN (Reason: shortness of breath or wheezing) Qty: 90 0RF benzonatate 200 mg capsule 200 mg PO TID PRN (Reason: cough) Qty: 30 0RF prednisone 20 mg tablet 40 mg PO DAILY Qty: 10 0RF albuterol sulfate [ProAir HFA] 90 mcg/actuation HFA aerosol inhaler 2 puff inhalation Q4-6H PRN (Reason: shortness of breath or wheezing) Qty: 8.5 0RF Stand Alone Forms: Work/School Release Interventions: LWBS Worksheet Last Done: 12/16/23 21:40
[2023-12-16 23:15] VITALS: PULSE 77; RESP 24; O2SAT 94
[2023-12-16] MEDS: Albuterol Sulfate 7.5 MG, Albuterol/Iprat 2.5/0.5MG 3 ML 3 ML INHALE (23:15)
[2023-12-16] MEDS: Magnesium Sulfate/H2O 2 GM/50 ML PIGGYBACK IV (23:15)
[2023-12-16] MEDS: methylPREDNISolone Sod Succ 125 MG/2 ML VIAL IVPUSH (23:15)
[2023-12-16 23:18] LABS: MANUAL DIFF FLAG NO
[2023-12-16 23:19] LABS: Basophils Absolute Auto 0.1 X10*3/uL (0.0-0.2); Basophils Percent Auto 0.7 % (0-2); Eosinophils Absolute Auto 0.4 X10*3/uL (0.0-0.4); Eosinophils Percent Auto 4.6 % (0-4); Hematocrit 38.4 % (42.0-52.0); Hemoglobin 12.6 g/dl (14.0-18.0); Imm Gran Abs Auto 0.01 X10*3/uL (0.00-0.03); Imm Gran Pct Auto 0.1 % (0.0-0.4); Lymphocytes Absolute Auto 2.4 X10*3/uL (1.2-4.9); Lymphocytes Percent Auto 27.6 % (20-40); Mean Corpuscular HGB Conc 32.8 g/dl (31.0-36.0); Mean Corpuscular Hemoglobin 28.7 pg (27.0-33.0); Mean Corpuscular Volume 87.5 fL (80.0-98.0); Mean Platelet Volume 10.4 fL (9.4-12.4); Monocytes Absolute Auto 0.7 X10*3/uL (0.1-1.2); Monocytes Percent Auto 8.3 % (2-11); Neutrophils Absolute Auto 5.1 x10*3/uL (2.0-8.3); Neutrophils Percent Auto 58.7 % (45-73); Platelet Count 318 X10*3/uL (160-400); Red Blood Count 4.39 X10*6/uL (4.60-5.80); Red Cell Distribution Width 13.1 % (11.0-16.0); White Blood Count 8.7 X10*3/uL (4.8-10.8)
[2023-12-16 23:38] LABS: Alanine Aminotransferase 9 U/L (0-40); Albumin Level 3.9 g/dL (3.5-5.0); Alkaline Phosphatase 75 U/L (39-117); Anion Gap 13 (12-20); Aspartate Amino Transferase 17 U/L (5-37); Bilirubin Direct 0.2 mg/dL (0.0-0.5); Bilirubin Total 0.4 mg/dL (0.0-1.0); Blood Urea Nitrogen 8 mg/dL (9-16); Calcium 9.7 mg/dL (8.4-10.2); Carbon Dioxide 30 mmol/L (22-29); Chloride 102 mmol/L (96-108); Creatinine Clr Calc Pharmacy 192.7; Estimated Glomerular Filt Rate > 60; Glucose Random 74 mg/dL (60-115); Magnesium 1.9 mg/dL (1.6-2.6); Potassium 4.1 mmol/L (3.3-5.1); Sodium 141 mmol/L (135-145); Total Protein 7.6 g/dL (6.5-8.0)
[2023-12-16 23:41] LABS: Ethanol < 10 mg/dL
[2023-12-16 23:54] LABS: Amphetamine Screen Urine Not Detected (Not Detect); Barbiturates, Urine Not Detected (Not Detect); Benzodiazepines Screen Urine Not Detected (Not Detect); Cannabinoid Screen Urine Not Detected (Not Detect); Cocaine Screen Urine POSITIVE (Not Detect); Fentanyl, urine POSITIVE (Not Detect); Opiate Screen Urine POSITIVE (Not Detect); Phencyclidine Screen Urine Not Detected (Not Detect)
[2023-12-16 23:55] LABS: Influenza A PCR NEGATIVE (Negative); Influenza B PCR NEGATIVE (Negative); Resp Syncy Virus RNA Qual PCR NEGATIVE (Negative); SARS COV2 PCR INHOUSE NEGATIVE (Negative)
[2023-12-16] MEDS: Albuterol Sulfate 5 MG, Albuterol Sulfate (0.083%) 2.5 MG 7.5 MG INHALE (23:59)
[2023-12-17] VITALS: PULSE 91; RESP 14; O2SAT 96
[2023-12-17 01:08] VITALS: BP 100/50; PULSE 82; RESP 20; TEMP 36.8; O2SAT 94
== END 2023-12-17 02:10 | disposition home or self-care (01) ==
PROVIDERS: Emergency Provider Emergency Medicine
DX: J20.9 Acute bronchitis, unspecified (principal); J45.51 Severe persistent asthma with (acute) exacerbation; R06.02 Shortness of breath; R05.9 Cough, unspecified; Z79.899 Other long term (current) drug therapy; Z11.52 Encounter for screening for COVID-19; Z20.822 Contact with and (suspected) exposure to COVID-19
CPT/HCPCS: 0241U; 36415; 71046; 80048; 80076; 80307; 83735; 85025; 93005; 94640; 96365; 96375; 99285; J2930; J3475

== ENCOUNTER → 2023-12-16 22:36 | Outpatient (BNV) | payer OTHER, SELFPAY | PROVIDERS: Emergency Provider Emergency Medicine; Visit Provider Internal Medicine Cardiovascular Disease | DX: R06.2 Wheezing (principal) | CPT/HCPCS: 93010 ==

== ENCOUNTER 2024-04-07 22:25 | Inpatient (IN) | payer OTHER, SELFPAY ==
--- NOTE | 2024-04-07 | ECG_ITS ---
Test Reason : CHEST PAIN Blood Pressure : / mmHG Vent. Rate : 087 BPM Atrial Rate : 087 BPM P-R Int : 128 ms QRS Dur : 090 ms QT Int : 356 ms P-R-T Axes : 056 079 043 degrees QTc Int : 428 ms Normal sinus rhythm Normal ECG When compared with ECG of 16-DEC-2023 22:36, No significant change was found Referred By: Generic ED Physician Electronically Signed By:ZACH SALCEDO
--- NOTE | ~2024-04-07 | XR_ITS ---
EXAMINATION: XR CHEST CLINICAL INFORMATION: Shortness of breath COMPARISON: 12/16/2023 TECHNIQUE: Frontal view of the chest was obtained. FINDINGS: No significant abnormality is noted involving the heart, lungs, mediastinum, bony thorax or soft tissues. Mild bibasilar atelectasis is present. XR/XR chest 1V IMPRESSION: Unremarkable examination.
[2024-04-07 22:34] VITALS: PULSE 82; RESP 20; TEMP 37.1; O2SAT 79; BMI 28.6
[2024-04-07 22:44] VITALS: O2SAT 88
--- NOTE | 2024-04-07 22:47 | ED.CHESTPAIN ---
HPI - Chest Pain General Chief Complaint: Chest Pain Stated Complaint: Diff breathing, asthma, chest pain Time Seen by Provider: 04/07/24 22:40 Source: patient Mode of arrival: ambulatory Limitations: no limitations History of Present Illness ED Provider: Dr. Val Espinoza HPI narrative: Patient comes to the emergency room complaining of an asthma exacerbation. Patient states that for the last couple of nights, patient has been having shortness of breath, wheezing. Patient reports that he is known to have asthma, has not had any medications available to him, states he recently changed pulmonary providers. Patient complaining of mild left-sided chest pain with deep inspirations. Related Data Previous Rx's ?Medication ?Instructions ?Recorded cyclobenzaprine 10 mg tablet 10 mg PO TID PRN muscle spasm #12 08/19/21 tabs ibuprofen 600 mg tablet 600 mg PO Q8H PRN pain #20 tabs 08/19/21 lidocaine 5 % topical patch 1 patch topical DAILY #15 ea 08/19/21 cyclobenzaprine 10 mg tablet 10 mg PO TID PRN muscle spasm #10 06/09/23 tabs amoxicillin 875 mg-potassium 1 tab PO BID 7 days #14 tabs 10/02/23 clavulanate 125 mg tablet albuterol sulfate 2.5 mg/3 mL 2.5 mg (3 mL) inhalation Q4-6H PRN 10/14/23 (0.083 %) solution for nebulization shortness of breath or wheezing #90 mL albuterol sulfate 90 mcg/actuation 2 puff inhalation Q4-6H PRN 10/14/23 aerosol inhaler (ProAir HFA) shortness of breath or wheezing #8.5 grams benzonatate 200 mg capsule 200 mg PO TID PRN cough #30 caps 10/14/23 nebulizers #1 ea 10/14/23 prednisone 20 mg tablet 40 mg (2 x 20 mg) PO DAILY #10 tabs 10/14/23 cefpodoxime 200 mg tablet 200 mg PO BID #14 tabs 11/24/23 prednisone 20 mg tablet 40 mg (2 x 20 mg) PO DAILY 4 days 11/24/23 #8 tabs albuterol sulfate 2.5 mg/3 mL 2.5 mg (3 mL) inhalation Q4-6H PRN 12/17/23 (0.083 %) solution for nebulization bronchospasm #75 mL doxycycline hyclate 100 mg capsule 100 mg PO BID 7 days #14 caps 12/17/23 prednisone 20 mg tablet 40 mg (2 x 20 mg) PO DAILY 5 days 12/17/23 #10 tabs Allergies Allergy/AdvReac Type Severity Reaction Status Date / Time acetaminophen [From Tylenol] AdvReac Gastrointestinal Verified 04/07/24 22:41 Upset Review of Systems Review of Systems: Constitutional : No Weight loss, No Fever, No Chills, No Night Sweats, No Fatigue, No Malaise ENT/Mouth : No Hearing loss, No Ear Pain, No Nasal Congestion, No Sinus Pain, No Hoarseness, No sore throat, No Rhinorrhea, No Swallowing Difficulty Eyes: No Eye Pain, No Swelling, No Redness, No Foreign Body, No Discharge, No Vision Changes Cardiovascular : Complaining of left-sided pressure with deep inspiration, No Dyspnea on Exertion, No Orthopnea, No Edema, No Palpitations Respiratory : No coughing, complaining of wheezing, shortness of breath Gastrointestinal : No Nausea, No Vomiting, No Diarrhea, No Constipation, No abdominal Pain, No Hematochezia, No Melena Genitourinary : no irregular bleeding, No Dysuria, No Urinary Frequency, No Hematuria, No Urinary Incontinence, No Urgency, No Flank Pain, No Urinary Flow Changes, No Hesitancy Musculoskeletal : No joint pain, No Myalgias, No Joint Swelling Skin : No Skin Lesions, No rash Neuro : No Weakness, No Numbness, No Paresthesias, No Loss of Consciousness, No Dizziness, No Headache Psych : No Anxiety/Panic, No Depression, No SI/HI/AH/VH, No Social Issues, Heme/Lymph: No Bruising, No Bleeding,No Lymphadenopathy Endocrine : No Polyuria, No Polydipsia, No Temperature Intolerance [facility] Past Medical History Medical History (Updated 04/07/24 @ 23:56 by Val Espinoza MD) Asthma Social History Social History (Updated 12/16/23 @ 23:22 by Annie Nguyễn DO) Patient Tobacco Use Status: Former Tobacco user Advance Directives: No Advance Directives Information Provided: No Do you have a plan to hurt others: No Plan Physical Exam Vital Signs: Vital Signs: Last Vital Signs Temp 98.7 F 04/07/24 22:34 Pulse 89 04/07/24 23:17 Resp 16 04/07/24 23:17 Pulse Ox 88 L 04/07/24 22:44 O2 Del Method Nasal Cannula 04/07/24 22:44 O2 Flow Rate 3 04/07/24 22:44 BMI result Body Mass Index 28.6 Const: Other: Appearance: Alert. Oriented X3. No acute distress. Eyes: Pupils equal, round and reactive to light. ENT: Pharynx normal. Neck: Normal inspection. Neck supple. No lymph nodes noted. No crepitus CVS: Normal heart rate and rhythm. Pulses normal. Normal S1 and S2 Respiratory: Bilateral wheezing, oxygen saturation 79% on room air, oxygen saturation 90% on 4 L Abdomen: Soft and nontender. No rigidity. No distention. Skin: Skin warm and dry. Normal skin color. Normal skin turgor. Extremities: No lower extremity edema. No Lacerations. No Rash Neuro: Oriented X 3. No motor deficit. No sensory deficit. Moving all extremities. No slurred speech. CN 2 through 12 grossly intact Psych: calm, cooperative, normal affect Course Course Course Narrative: -patient receiving a breathing treatment, magnesium, Solu-Medrol -all of patient's labs and imaging pending Medications Administered Generic Name Dose Route Start Last Admin Trade Name Freq PRN Reason Stop Dose Admin Magnesium Sulfate 2 gm in 50 mls @ 25 mls/hr 04/07/24 22:43 04/07/24 23:25 Magnesium Sulfate/H2o IV 04/08/24 00:42 Infused ONCE ONE Infusion Discontinued Medications Generic Name Dose Route Start Last Admin Trade Name Freq PRN Reason Stop Dose Admin Albuterol Sulfate 2.5 mg/ 0 mg 04/07/24 22:47 04/07/24 22:52 Albuterol/Ipratropium 3 ml INHALE 04/07/24 22:48 2 dose ONCE ONE Administration Albuterol Sulfate 2.5 mg/ 0 mg 04/07/24 23:11 04/07/24 23:17 Albuterol/Ipratropium 3 ml INHALE 04/07/24 23:12 2 dose ONCE ONE Administration Methylprednisolone Sodium Succinate 125 mg 04/07/24 22:43 04/07/24 22:58 Methylprednisolone Sod Succ 125 Mg/2 Ml Vial IVPUSH 04/07/24 22:44 125 mg ONCE ONE Administration Medical Decision Making Medical Decision Making [facility] Narrative: Patient received multiple nebulization treatments, IV Solu-Medrol, magnesium .-we tried weaning the patient off of oxygen, at rest, oxygen drops to 87%. Patient needs nasal cannula for oxygen supplementation to stay in the low 90s. -I discussed the patient with Dr. Sanchez, patient being admitted for asthma exacerbation Differential Diagnosis Differential Diagnoses: The differential diagnosis associated with the presentation includes (Asthma, viral syndrome) Admission/Observation Consideration of admission/observation: Escalation of care including admission/observation considered (Given patient's initial presentation, admission was considered) Consult Healthcare Provider Management of the patient was discussed with: Hospitalist Lab Data [facility] Lab Attestation statement: I reviewed the patient's lab results. 04/07/24 22:47 04/07/24 22:47 Labs: Lab Results 04/07/24 04/07/24 Range/Units 22:47 22:50 WBC 9.8 (4.8-10.8) X10*3/uL RBC 4.38 L (4.60-5.80) X10*6/uL Hgb 13.0 L (14.0-18.0) g/dl Hct 38.1 L (42.0-52.0) % MCV 87.0 (80.0-98.0) fL MCH 29.7 (27.0-33.0) pg MCHC 34.1 (31.0-36.0) g/dl RDW 12.6 (11.0-16.0) % Plt Count 295 (160-400) X10*3/uL MPV 10.3 (9.4-12.4) fL Immature Gran % (Auto) 0.2 (0.0-0.4) % Neut % (Auto) 74.1 H (45-73) % Lymph % (Auto) 13.7 L (20-40) % [place] % (Auto) 7.4 (2-11) % Eos % (Auto) 3.9 (0-4) % Baso % (Auto) 0.7 (0-2) % Lymph # (Auto) 1.4 (1.2-4.9) X10*3/uL [place] # (Auto) 0.7 (0.1-1.2) X10*3/uL Eos # (Auto) 0.4 (0.0-0.4) X10*3/uL Baso # (Auto) 0.1 (0.0-0.2) X10*3/uL Abs Immat Gran (auto) 0.02 (0.00-0.03) X10*3/uL Absolute Neuts (auto) 7.3 (2.0-8.3) x10*3/uL Absolute Nucleated RBC 0.000 (0.0-0.012) X10*3/uL Nucleated RBC % (auto) 0.0 (0.0-0.2) /100WBC Hold Purple Top SEE NOTE VBG pH 7.41 (7.32-7.43) VBG pCO2 52 mmHg VBG pO2 59 mmHg VBG HCO3 34 H (22-26) mmol/L VBG O2 Saturation 85.0 % VBG Base Excess 7.9 mmol/L Sodium 138 (135-145) mmol/L Potassium 3.9 (3.3-5.1) mmol/L Chloride 99 (96-108) mmol/L Carbon Dioxide 31 H (22-29) mmol/L Anion Gap 12 (12-20) BUN 11 (9-16) mg/dL Creatinine 0.75 (0.5-1.4) mg/dL Estim Creat Clear Calc 158.6 Estimated GFR > 60 Random Glucose 112 (60-115) mg/dL Calcium 9.9 (8.4-10.2) mg/dL Total Bilirubin 0.9 (0.0-1.0) mg/dL Direct Bilirubin 0.3 (0.0-0.5) mg/dL AST 18 (5-37) U/L ALT 8 (0-40) U/L Alkaline Phosphatase 81 (39-117) U/L Troponin I High Sens < 2.7 (<3.5-35.0) ng/L Total Protein 8.2 H (6.5-8.0) g/dL Albumin 4.1 (3.5-5.0) g/dL Independent Interpretation I performed an independent interpretation of an: Plain X-Ray Radiology Impression Discussion of test interpretation with radiology: I have reviewed the radiologist's reading. Radiologist Impression: No significant abnormality is noted involving the heart, lungs, mediastinum, bony thorax or soft tissues. Mild bibasilar atelectasis is present. XR/XR chest 1V IMPRESSION: Unremarkable examination. Critical Care Time Critical Care Time Critical Care Time: Yes Total Critical Care Time: 60 Attestation: I have personally provided critical care time. Time includes review of lab data, radiology results, discussion with consultants, and monitoring for potential decompensation. Intervention performed as documented. Discharge Plan Discharge Clinical Impression: Asthma exacerbation Patient Disposition: Admitted As Inpatient Prescriptions: No Action cyclobenzaprine 10 mg tablet 10 mg PO TID PRN (Reason: muscle spasm) Qty: 12 0RF lidocaine 5 % adhesive patch,medicated 1 patch topical DAILY Qty: 15 0RF Rx Instructions: leave on most painful area for up to 12 hrs ibuprofen 600 mg tablet 600 mg PO Q8H PRN (Reason: pain) Qty: 20 0RF amoxicillin-pot clavulanate 875-125 mg tablet 1 tab PO BID 7 Days Qty: 14 0RF cefpodoxime 200 mg tablet 200 mg PO BID Qty: 14 0RF Rx Instructions: must administer with a meal/food prednisone 20 mg tablet 40 mg PO DAILY 4 Days Qty: 8 0RF doxycycline hyclate 100 mg capsule 100 mg PO BID 7 Days Qty: 14 0RF albuterol sulfate 2.5 mg /3 mL (0.083 %) solution for nebulization 2.5 mg inhalation Q4-6H PRN (Reason: bronchospasm) Qty: 75 0RF prednisone 20 mg tablet 40 mg PO DAILY 5 Days Qty: 10 0RF cyclobenzaprine 10 mg tablet 10 mg PO TID PRN (Reason: muscle spasm) Qty: 10 0RF (DME) nebulizers Misc See Rx Instructions .Route Qty: 1 0RF Rx Instructions: As directed albuterol sulfate 2.5 mg /3 mL (0.083 %) solution for nebulization 2.5 mg inhalation Q4-6H PRN (Reason: shortness of breath or wheezing) Qty: 90 0RF benzonatate 200 mg capsule 200 mg PO TID PRN (Reason: cough) Qty: 30 0RF prednisone 20 mg tablet 40 mg PO DAILY Qty: 10 0RF albuterol sulfate [ProAir HFA] 90 mcg/actuation HFA aerosol inhaler 2 puff inhalation Q4-6H PRN (Reason: shortness of breath or wheezing) Qty: 8.5 0RF Print Language: Singaporean
--- NOTE | 2024-04-07 22:50 | PC.NURSE ---
pt ambulatory with steady gait to ed16 from waiting room, 77% on RA. MD called to bedside. RT notified. pt placed on 2L NC sats 88-90%. pt reports hx asthma, hasnt been using medications. expiratory and inspiratory wheezing bilat lungs throughout. iv established. labs obtained. RT at bedside for neb treatment.
[2024-04-07] MEDS: Albuterol Sulfate 2.5 MG, Albuterol/Iprat 2.5/0.5MG 3 ML 3 ML INHALE ×2 (22:52→23:17)
[2024-04-07 22:56] VITALS: PULSE 78; RESP 19; O2SAT 91
[2024-04-07 22:56] LABS: MANUAL DIFF FLAG NO
[2024-04-07 22:57] LABS: Basophils Absolute Auto 0.1 X10*3/uL (0.0-0.2); Basophils Percent Auto 0.7 % (0-2); Eosinophils Absolute Auto 0.4 X10*3/uL (0.0-0.4); Eosinophils Percent Auto 3.9 % (0-4); Hematocrit 38.1 % (42.0-52.0); Imm Gran Abs Auto 0.02 X10*3/uL (0.00-0.03); Imm Gran Pct Auto 0.2 % (0.0-0.4); Lymphocytes Absolute Auto 1.4 X10*3/uL (1.2-4.9); Lymphocytes Percent Auto 13.7 % (20-40); Mean Corpuscular HGB Conc 34.1 g/dl (31.0-36.0); Mean Corpuscular Hemoglobin 29.7 pg (27.0-33.0); Mean Platelet Volume 10.3 fL (9.4-12.4); Monocytes Absolute Auto 0.7 X10*3/uL (0.1-1.2); Monocytes Percent Auto 7.4 % (2-11); Neutrophils Absolute Auto 7.3 x10*3/uL (2.0-8.3); Neutrophils Percent Auto 74.1 % (45-73); Platelet Count 295 X10*3/uL (160-400); Red Blood Count 4.38 X10*6/uL (4.60-5.80); Red Cell Distribution Width 12.6 % (11.0-16.0); White Blood Count 9.8 X10*3/uL (4.8-10.8)
[2024-04-07 22:58] LABS: VBG Base Excess 7.9 mmol/L; VBG HCO3 34 mmol/L (22-26); VBG pCO2 52 mmHg; VBG pH 7.41 (7.32-7.43); VBG pO2 59 mmHg
[2024-04-07] MEDS: Magnesium Sulfate/H2O 2 GM/50 ML PIGGYBACK IV (22:58)
[2024-04-07] MEDS: methylPREDNISolone Sod Succ 125 MG/2 ML VIAL IVPUSH (22:58)
[2024-04-07 22:59] LABS: Venous Blood Gas Refer to POC result
[2024-04-07 23:00] VITALS: PULSE 82
[2024-04-07 23:12] LABS: Alanine Aminotransferase 8 U/L (0-40); Albumin Level 4.1 g/dL (3.5-5.0); Alkaline Phosphatase 81 U/L (39-117); Anion Gap 12 (12-20); Aspartate Amino Transferase 18 U/L (5-37); Bilirubin Direct 0.3 mg/dL (0.0-0.5); Bilirubin Total 0.9 mg/dL (0.0-1.0); Blood Urea Nitrogen 11 mg/dL (9-16); Calcium 9.9 mg/dL (8.4-10.2); Carbon Dioxide 31 mmol/L (22-29); Chloride 99 mmol/L (96-108); Creatinine Clr Calc Pharmacy 158.6; Estimated Glomerular Filt Rate > 60; Glucose Random 112 mg/dL (60-115); Potassium 3.9 mmol/L (3.3-5.1); Sodium 138 mmol/L (135-145); Total Protein 8.2 g/dL (6.5-8.0)
[2024-04-07 23:17] VITALS: PULSE 89; RESP 16; O2SAT 93
[2024-04-07 23:19] LABS: Troponin-I High Sensitivity < 2.7 ng/L (<3.5-35.0)
--- NOTE | 2024-04-07 23:44 | PC.NURSE ---
Addendum entered by David Mitchell 04/07/24 23:53: sats 88% on RA. pt placed back on 2L NC per MD, RT notified. Original Note: mag infused per mar per MD verbal order. pt is verbalizing improvement in resp. lung sounds still slightly wheezing but improved from previous assessment. pt is speaking full clear sentences, call rossi within reach.
--- NOTE | 2024-04-07 23:57 | PM.IMHP ---
History of Present Illness Date of Service: 04/07/24 Chief Complaint: Dyspnea This is a 34-year-old male with pertinent history of mood disorder, asthma not on home oxygen who presents to the emergency department for evaluation of dyspnea. Patient states symptoms started 3 days prior to presentation. He has been having dyspnea versus worse with exertion. Also has been having intermittent productive cough with wheezing. His symptoms of progressive. Not relieved with home inhaler. Patient does not smoke tobacco. No fever, chills, chest discomfort, palpitations, abdominal pain, changes in urinary or bowel habits. In the emergency department, patient satting 87% on room air and requiring 2 L supplemental oxygen. Patient continued to wheeze despite multiple DuoNeb treatments and IV steroids. Review of Systems Constitutional: Constitutional: Reports no additional constitutional complaints Cardiovascular: Cardiovascular: Reports dyspnea on exertion Respiratory: Respiratory: Reports cough, Reports dyspnea on exertion and Reports wheezing Gastrointestinal: Gastrointestinal: Reports no additional gastrointestinal complaints Genitourinary: Genitourinary: Reports no additional male genitourinary complaints Allergic/Immunologic: Allergic/Immunologic: Reports wheezing [facility] Medical History Asthma Pertinent family history: No family history of early CAD Social History Patient Tobacco Use Status: Former Tobacco user Advance Directives: No Advance Directives Information Provided: No Do you have a plan to hurt others: No Plan Meds Allergies Allergy/AdvReac Type Severity Reaction Status Date / Time acetaminophen [From Tylenol] AdvReac Gastrointestinal Verified 04/07/24 22:41 Upset Active Medications: Current Medications Magnesium Sulfate (Magnesium Sulfate/H2o) 2 gm in 50 mls @ 25 mls/hr IV ONCE ONE Stop: 04/08/24 00:42 Last Infusion: 04/07/24 23:25 Dose: Infused Physical Exam Vital Signs and Narrative: Vital Signs: Last Vital Signs Temp 98.7 F 04/07/24 22:34 Pulse 89 04/07/24 23:17 Resp 16 04/07/24 23:17 Pulse Ox 88 L 04/07/24 22:44 O2 Del Method Nasal Cannula 04/07/24 22:44 O2 Flow Rate 3 04/07/24 22:44 BMI result Body Mass Index 28.6 Middle-aged male lying in bed in mild distress on supplemental oxygen Neck supple, no JVD Regular rate and rhythm, S1-S2 heard Bilateral wheezing appreciated Abdomen soft nontender, no guarding, no rigidity Patient is awake, alert and oriented to self, place, time and person ; no focal motor deficit Psych: Normal mood No pedal edema Results Labs 04/07/24 22:47 04/07/24 22:47 Labs: Laboratory Results - last 24 hr 04/07/24 04/07/24 22:47 22:50 MCV 87.0 MCH 29.7 MCHC 34.1 RDW 12.6 Plt Count 295 MPV 10.3 Immature Gran % (Auto) 0.2 Neut % (Auto) 74.1 H Lymph % (Auto) 13.7 L [place] % (Auto) 7.4 Eos % (Auto) 3.9 Baso % (Auto) 0.7 Lymph # (Auto) 1.4 [place] # (Auto) 0.7 Eos # (Auto) 0.4 Baso # (Auto) 0.1 Abs Immat Gran (auto) 0.02 Absolute Neuts (auto) 7.3 Absolute Nucleated RBC 0.000 Nucleated RBC % (auto) 0.0 Hold Purple Top SEE NOTE VBG pH 7.41 VBG pCO2 52 VBG pO2 59 VBG HCO3 34 H VBG O2 Saturation 85.0 VBG Base Excess 7.9 Anion Gap 12 Estim Creat Clear Calc 158.6 Estimated GFR > 60 Random Glucose 112 Calcium 9.9 Total Bilirubin 0.9 Direct Bilirubin 0.3 AST 18 ALT 8 Alkaline Phosphatase 81 Troponin I High Sens < 2.7 Total Protein 8.2 H Albumin 4.1 Imaging Radiologist's Impressions: Impressions Chest X-Ray 04/07/24 22:52 IMPRESSION: Unremarkable examination. Assessment and Plan (1) Asthma exacerbation: Status: Acute Plan This is a 34-year-old male with pertinent history of mood disorder, asthma not on home oxygen who presents to the emergency department for evaluation of dyspnea. #. Acute hypoxemic respiratory failure due to acute exacerbation of asthma: Will admit patient with supplemental oxygen. Currently requiring 2 L. Initiating IV steroids. Scheduled and p.r.n. DuoNebs. Continue home inhaler. #. Mood disorder: Continue home mood stabilizers Med rec pending DVT prophylaxis: Lovenox Full code Admit as inpatient and will require two night minimum hospital stay for IV steroids, supplemental oxygen (as above), which is not possible in a lesser acute setting. Quality Stroke Does the patient have a stroke diagnosis?: No VTE Prior VTE?: No VTE Risk Level:: Medical - moderate - high VTE Device Contraindication: Treatment Not Indicated VTE Drug Contraindication: N/A - Med Ordered
[2024-04-07 23:58] LABS: B Type Natriuretic Peptide 23 pg/mL (<100)
[2024-04-07] MEDS: Albuterol Sulfate 7.5 MG, Albuterol/Iprat 2.5/0.5MG 3 ML 3 ML INHALE (23:58)
[2024-04-08] VITALS (10 sets, daily range): BP systolic 117–132; BP diastolic 58–75; PULSE 74–103; RESP 16–22; TEMP 36.2–37.2; O2SAT 92–97; BMI 28.6
--- NOTE | 2024-04-08 00:18 | MHC.EDTECH ---
Hourly rounds and vitals completed,repeat labs obtained and sent to lab,belongings list completed and copy placed in chart, belongings at bedside
--- NOTE | 2024-04-08 00:35 | MHC.EDTECH ---
Patient was given a sun butter and jelly sandwich,a jello and a can of tiffanie lynnette,patient is sitting eating and is comfortable at this time,call rossi in reach
[2024-04-08 01:04] LABS: Troponin-I High Sensitivity < 2.7 ng/L (<3.5-35.0)
--- NOTE | 2024-04-08 02:10 | MHC.EDTECH ---
Hourly rounds and vitals completed,patient spilled a cup of ice water in bed,bed linen changed,pt ambulated to the bathroom with a steady gait,urinated per pt,call rossi in reach
[2024-04-08] MEDS: 0.9 % Sodium Chloride Flush 3 ML SYRINGE IVFLUSH ×2 (03:30→08:07)
[2024-04-08 06:16] LABS: Basophils Percent Auto 0.1 % (0-2); Eosinophils Percent Auto 0.1 % (0-4); Hemoglobin 12.4 g/dl (14.0-18.0); Imm Gran Abs Auto 0.05 X10*3/uL (0.00-0.03); Imm Gran Pct Auto 0.6 % (0.0-0.4); Lymphocytes Absolute Auto 0.3 X10*3/uL (1.2-4.9); MANUAL DIFF FLAG SCAN; Mean Corpuscular HGB Conc 33.5 g/dl (31.0-36.0); Mean Corpuscular Hemoglobin 29.6 pg (27.0-33.0); Mean Corpuscular Volume 88.3 fL (80.0-98.0); Mean Platelet Volume 10.8 fL (9.4-12.4); Monocytes Absolute Auto 0.1 X10*3/uL (0.1-1.2); Monocytes Percent Auto 1.1 % (2-11); Neutrophils Percent Auto 95.1 % (45-73); Platelet Count 258 X10*3/uL (160-400); Red Blood Count 4.19 X10*6/uL (4.60-5.80); Red Cell Distribution Width 12.8 % (11.0-16.0); SCAN SMEAR FLAG 1; White Blood Count 8.4 X10*3/uL (4.8-10.8)
[2024-04-08 06:33] LABS: Anion Gap 17 (12-20); Blood Urea Nitrogen 10 mg/dL (9-16); Calcium 9.4 mg/dL (8.4-10.2); Carbon Dioxide 25 mmol/L (22-29); Chloride 96 mmol/L (96-108); Creatinine Clr Calc Pharmacy 158.7; Estimated Glomerular Filt Rate > 60; Glucose Random 337 mg/dL (60-115); Potassium 3.1 mmol/L (3.3-5.1); Sodium 135 mmol/L (135-145)
[2024-04-08 06:39] LABS: SLIDE REVIEW VERIFIED
--- NOTE | 2024-04-08 07:12 | HE.PHANOTE ---
METHADONE Dose: 95mg, last dosed on 04/05/24 with 3 take home bottles per Alexis Andrews at [facility] home dose would be 04/08/24.
[2024-04-08] MEDS: Albuterol/Iprat 2.5/0.5MG 3 ML AMPUL.NEB INHALE ×3 (07:33→15:08)
--- NOTE | 2024-04-08 07:39 | PM.DS ---
DS: Providers Provider Date of Service: 04/08/24 Date of admission: 04/07/24 23:57 Primary care physician: Unknown Physician DS: Diagnosis Discharge Diagnosis (1) Asthma exacerbation: Status: Acute DS: Summary Hospital Course Hospital Course: admission hpi Chief Complaint: Dyspnea This is a 34-year-old male with pertinent history of mood disorder, asthma not on home oxygen who presents to the emergency department for evaluation of dyspnea. Patient states symptoms started 3 days prior to presentation. He has been having dyspnea versus worse with exertion. Also has been having intermittent productive cough with wheezing. His symptoms of progressive. Not relieved with home inhaler. Patient does not smoke tobacco. No fever, chills, chest discomfort, palpitations, abdominal pain, changes in urinary or bowel habits. In the emergency department, patient satting 87% on room air and requiring 2 L supplemental oxygen. Patient continued to wheeze despite multiple DuoNeb treatments and IV steroids. Hospital course: The patient was admitted for the management of an acute exacerbation of moderate persistent asthma with associated hypoxia. Treatment included intravenous (IV) steroids and bronchodilators administered via nebulizers. The patient made a rapid recovery by the following day, with resolution of hypoxia and a clear lung examination. He was transitioned to oral prednisone to complete a total of 5 days of steroid therapy. During his hospital stay, he experienced episodes of hyperglycemia. Initially, his random blood sugar was 112 mg/dL. After receiving IV steroids, his blood sugar increased to 337 mg/dL but later decreased to 159 mg/dL without the use of insulin. His hemoglobin A1c was 5.3%, indicating no diabetes but suggesting impaired glucose tolerance and a potential future risk of diabetes. Basic metabolic panel (BMP) results did not show acidosis. The hyperglycemia was undoubtedly due to steroid use and is expected to resolve within a few days after discontinuing the steroid. As a precautionary measure, we discussed management options, including the use of metformin and monitoring. The patient opted for monitoring; he noted a family history of diabetes, as his mother also has the condition. Blood sugar levels continued to trend down despite ongoing steroid use. Further instructions were provide regular blood glucose monitoring with the glucometer provided, advice on maintaining a balanced diet to manage blood glucose levels, to chedule a follow-up appointment to reassess blood glucose levels and overall health status and have hemoglobin A1C repeated in the near future. To avoid ilicit substances. A copy of this reported is being forwarded to PCP Time Attestation Discharge Coordination Time (in mins): 40 Quality: Safe Use of Opioids Does Pt have an Active Cancer Diagnosis on the Problem List?: No Quality: Stroke Does the patient have a stroke diagnosis?: No Physical Exam Vital Signs: Vital Signs: Last Vital Signs Temp 98 F 04/08/24 07:11 Pulse 93 04/08/24 07:33 Resp 18 04/08/24 07:33 BP 117/58 L 04/08/24 07:11 Pulse Ox 95 04/08/24 07:11 O2 Del Method Nasal Cannula 04/08/24 07:11 O2 Flow Rate 2 04/08/24 07:11 BMI result Body Mass Index 28.6 General: AO X 3, no acute distress Resp: CTA bilateral CVS: S1,S2,RRR GI: +BS, NT, no distention Skin: No rash Neuro: motor grossly intact Psych: appropriate affect DS: Data Data Completed and Pending Labs on day of discharge: Laboratory Results - last 24 hr 04/07/24 04/07/24 04/08/24 22:47 22:50 00:26 WBC 9.8 RBC 4.38 L Hgb 13.0 L Hct 38.1 L MCV 87.0 MCH 29.7 MCHC 34.1 RDW 12.6 Plt Count 295 MPV 10.3 Immature Gran % (Auto) 0.2 Neut % (Auto) 74.1 H Lymph % (Auto) 13.7 L [place] % (Auto) 7.4 Eos % (Auto) 3.9 Baso % (Auto) 0.7 Lymph # (Auto) 1.4 [place] # (Auto) 0.7 Eos # (Auto) 0.4 Baso # (Auto) 0.1 Abs Immat Gran (auto) 0.02 Absolute Neuts (auto) 7.3 Absolute Nucleated RBC 0.000 Nucleated RBC % (auto) 0.0 Smear Tech's Comments Hold Purple Top SEE NOTE VBG pH 7.41 VBG pCO2 52 VBG pO2 59 VBG HCO3 34 H VBG O2 Saturation 85.0 VBG Base Excess 7.9 Sodium 138 Potassium 3.9 Chloride 99 Carbon Dioxide 31 H Anion Gap 12 BUN 11 Creatinine 0.75 Estim Creat Clear Calc 158.6 Estimated GFR > 60 Random Glucose 112 Calcium 9.9 Total Bilirubin 0.9 Direct Bilirubin 0.3 AST 18 ALT 8 Alkaline Phosphatase 81 Troponin I High Sens < 2.7 < 2.7 B-Natriuretic Peptide 23 Total Protein 8.2 H Albumin 4.1 04/08/24 05:27 WBC 8.4 RBC 4.19 L Hgb 12.4 L Hct 37.0 L MCV 88.3 MCH 29.6 MCHC 33.5 RDW 12.8 Plt Count 258 MPV 10.8 Immature Gran % (Auto) 0.6 H Neut % (Auto) 95.1 H Lymph % (Auto) 3.0 L [place] % (Auto) 1.1 L Eos % (Auto) 0.1 Baso % (Auto) 0.1 Lymph # (Auto) 0.3 L [place] # (Auto) 0.1 Eos # (Auto) 0.0 Baso # (Auto) 0.0 Abs Immat Gran (auto) 0.05 H Absolute Neuts (auto) 8.0 Absolute Nucleated RBC 0.000 Nucleated RBC % (auto) 0.0 Smear Tech's Comments VERIFIED Hold Purple Top VBG pH VBG pCO2 VBG pO2 VBG HCO3 VBG O2 Saturation VBG Base Excess Sodium 135 Potassium 3.1 L D Chloride 96 Carbon Dioxide 25 Anion Gap 17 BUN 10 Creatinine 0.75 Estim Creat Clear Calc 158.7 Estimated GFR > 60 Random Glucose 337 H Calcium 9.4 Total Bilirubin Direct Bilirubin AST ALT Alkaline Phosphatase Troponin I High Sens B-Natriuretic Peptide Total Protein Albumin Discharge Plan Discharge Anticipated Discharge Date/Time: 04/08/24 15:51 Patient Disposition: Home, Self-Care Discharge Diagnosis: Asthma exacerbation, hyperglycemia Referrals: Physician,Unknown J [Physician] - 1 Week Discharge Medications: New prednisone 20 mg tablet 40 mg PO DAILY Qty: 6 0RF (DME) blood-glucose meter [FreeStyle Lite Meter] Kit Qty: 1 0RF Rx Instructions: As Directed for times a day alcohol swabs Pads, Medicated 1 pad TOPICAL QIDACHS Qty: 100 0RF Rx Instructions: Use four times a day or as directed. (DME) lancets [FreeStyle Lancets] 28 gauge misc Qty: 100 0RF Rx Instructions: Test four times a day or as directed. albuterol sulfate 90 mcg/actuation HFA aerosol inhaler 2 inh inhalation Q6-8H PRN (Reason: shortness of breath or wheezing) Qty: 18 1RF Continued methadone 10 mg/mL Concentrate 95 mg PO DAILY albuterol sulfate 2.5 mg /3 mL (0.083 %) solution for nebulization 2.5 mg inhalation Q4-6H PRN (Reason: bronchospasm) Qty: 90 0RF (DME) nebulizers Misc See Rx Instructions .Route Qty: 1 0RF Rx Instructions: As directed albuterol sulfate [ProAir HFA] 90 mcg/actuation HFA aerosol inhaler 2 puff inhalation Q4-6H PRN (Reason: shortness of breath or wheezing) Qty: 8.5 0RF Discharge Orders: Discharge Order (Routine); Ordered 04/08/24 Ordered By: Yohannes Allison Diet: Diabetic diet Activity on Discharge: As tolerated Stand Alone Forms: Patient Portal Discharge page Print Language: German Care Plan Goals: full recovery from asthma exacerbation and breathing comfortably Health Concerns: asthma exacerbation Plan of Treatment: take prednisone as recommended and follow up with your Doctor in a week, call for appointment check your blood sugars before before meals--There is tendency for your blood sugar level to go up while you are taking steroid and pre diabetes condition, you may need medication management and adjustment if your sugar level are consitently high above 200, exercising and watching your diet will help keep your sugars low and prevent diabetes Assessment: see above Patient Instructions: Meal Planning with Diabetes Exchanges (DC) Discharge Date/Time: 04/08/24 16:33
[2024-04-08] MEDS: Enoxaparin Sodium 40 MG/0.4 ML SYRINGE SUBCUT (08:06)
[2024-04-08] MEDS: Potassium Chloride ER 20 MEQ TAB.ER.PRT 40 MEQ PO (08:07)
[2024-04-08] MEDS: methylPREDNISolone Sod Succ 40 MG/ML VIAL IVPUSH (08:07)
[2024-04-08] MEDS: methADONE HCl 20 MG/2 ML ORAL.CONC 95 MG PO (08:07)
[2024-04-08] MEDS: Benzonatate 100 MG CAPSULE PO ×2 (08:44→14:46)
[2024-04-08 09:00] LABS: Estimated Average Glucose 105 mg/dL; Hemoglobin A1c % 5.3 % (<6.0)
[2024-04-08 09:36] LABS: Glucose, Whole Blood 243 mg/dL (60-115)
--- NOTE | 2024-04-08 09:59 | MHC.CM.PN ---
Addendum entered by Alyse Patel RN 04/08/24 16:21: Patient medically cleared for dc home self care. Will transport self home, RN aware. Original Note: PATIENT LIVES IN A HOME W/ MOTHER. FUNCTIONALLY INDEPENDENT. DENIES USE OF DME OR SERVICES. PCP Homar Bush MD NO HCP. CM PROVIDED EDUCATION AND OFFERED ASSISTANCE. PATIENT DECLINED. DP: HOME SELF CARE WHEN MEDICALLY CLEARED, POTENTIALLY LATER TODAY. PATIENT REPORTS HIS CAR IS IN AN [facility] LOT AND PREFERS TO TRANSPORT SELF HOME IF SAFE TO DO SO. CM WILL CONTINUE TO FOLLOW.
--- NOTE | 2024-04-08 11:21 | PHA.MEDREC ---
Pharmacy Consult ? Medication Reconciliation Pharmacy has completed the medication reconciliation. Dr Allison called pharmacy to report that patient states he only takes albuterol inhaler and methadone. Med rec done with this information.
--- NOTE | 2024-04-08 13:35 | P.PNIM_ITS ---
Subjective Subjective Date of Service: 04/08/24 Interval History: f/u on asthma exacerbation feels better, no sob, has dry cough random BS noted to be high Physical Exam 2 Vital Signs: Vital Signs: Last Vital Signs Temp 98 F 04/08/24 07:11 Pulse 90 04/08/24 11:12 Resp 18 04/08/24 11:12 BP 117/58 L 04/08/24 07:11 Pulse Ox 92 04/08/24 10:18 O2 Del Method Room Air 04/08/24 10:18 O2 Flow Rate 2 04/08/24 07:11 BMI result Body Mass Index 28.6 General: AO X 3, no acute distress Resp: CTA rhonchil, nl wob CVS: S1,S2,RRR GI: +BS, NT, no distention Skin: No rash Neuro: motor grossly intact Psych: appropriate affect Objective Data Active Medications Acetaminophen (Acetaminophen 325 Mg Tablet) 650 mg PO Q6H PRN PRN Reason: Pain, Mild (Pain Scale 1-3), fever or headache Albuterol/Ipratropium (Albuterol/Iprat 2.5/0.5mg 3 Ml Ampul.Neb) 3 ml INHALE RQ4H WHILE AWAKE [facility] Last Admin: 04/08/24 11:11 Dose: 3 ml Documented By: ANGELY Albuterol/Ipratropium (Albuterol/Iprat 2.5/0.5mg 3 Ml Ampul.Neb) 3 ml INHALE Q4H PRN PRN Reason: Wheezing Benzonatate (Benzonatate 100 Mg Capsule) 100 mg PO TID [facility] Last Admin: 04/08/24 08:44 Dose: 100 mg Documented By: PATT Calcium Carbonate (Calcium Carbonate 750 Mg Tab.Chew) 750 mg PO Q4H PRN PRN Reason: Heartburn Enoxaparin Sodium (Enoxaparin Sodium 40 Mg/0.4 Ml Syringe) 40 mg SUBCUT Q24H [facility] Last Admin: 04/08/24 08:06 Dose: 40 mg Documented By: PATT Magnesium Hydroxide (Milk Of Magnesia 30 Ml Oral.Susp) 30 ml PO DAILY PRN PRN Reason: Constipation Melatonin (Melatonin 3 Mg Tablet) 6 mg PO BEDTIME PRN PRN Reason: Insomnia Methadone HCl (Methadone Hcl 20 Mg/2 Ml Oral.Conc) 95 mg PO DAILY [facility] Last Admin: 04/08/24 08:07 Dose: 95 mg Documented By: PATT Methylprednisolone Sodium Succinate (Methylprednisolone Sod Succ 40 Mg/Ml Vial) 40 mg IVPUSH Q12H [facility] Last Admin: 04/08/24 08:07 Dose: 40 mg Documented By: PATT Ondansetron HCl (Ondansetron Hcl 4 Mg/2 Ml Vial) 4 mg IVPUSH Q8H PRN PRN Reason: Nausea and Vomiting Sodium Chloride (0.9 % Sodium Chloride Flush 3 Ml Syringe) 3 ml IVFLUSH QSHIFT [facility] Last Admin: 04/08/24 08:07 Dose: 3 ml Documented By: PATT Labs 04/08/24 05:27 04/08/24 05:27 Labs: Laboratory Results - last 24 hr 04/07/24 04/07/24 04/08/24 22:47 22:50 00:26 MCV 87.0 MCH 29.7 MCHC 34.1 RDW 12.6 Plt Count 295 MPV 10.3 Immature Gran % (Auto) 0.2 Neut % (Auto) 74.1 H Lymph % (Auto) 13.7 L [place] % (Auto) 7.4 Eos % (Auto) 3.9 Baso % (Auto) 0.7 Lymph # (Auto) 1.4 [place] # (Auto) 0.7 Eos # (Auto) 0.4 Baso # (Auto) 0.1 Abs Immat Gran (auto) 0.02 Absolute Neuts (auto) 7.3 Absolute Nucleated RBC 0.000 Nucleated RBC % (auto) 0.0 Smear Tech's Comments Hold Purple Top SEE NOTE VBG pH 7.41 VBG pCO2 52 VBG pO2 59 VBG HCO3 34 H VBG O2 Saturation 85.0 VBG Base Excess 7.9 Anion Gap 12 Estim Creat Clear Calc 158.6 Estimated GFR > 60 POC Glucose Random Glucose 112 Estimat Average Glucose 105 Hemoglobin A1c % 5.3 Calcium 9.9 Total Bilirubin 0.9 Direct Bilirubin 0.3 AST 18 ALT 8 Alkaline Phosphatase 81 Troponin I High Sens < 2.7 < 2.7 B-Natriuretic Peptide 23 Total Protein 8.2 H Albumin 4.1 04/08/24 04/08/24 05:27 09:32 MCV 88.3 MCH 29.6 MCHC 33.5 RDW 12.8 Plt Count 258 MPV 10.8 Immature Gran % (Auto) 0.6 H Neut % (Auto) 95.1 H Lymph % (Auto) 3.0 L [place] % (Auto) 1.1 L Eos % (Auto) 0.1 Baso % (Auto) 0.1 Lymph # (Auto) 0.3 L [place] # (Auto) 0.1 Eos # (Auto) 0.0 Baso # (Auto) 0.0 Abs Immat Gran (auto) 0.05 H Absolute Neuts (auto) 8.0 Absolute Nucleated RBC 0.000 Nucleated RBC % (auto) 0.0 Smear Tech's Comments VERIFIED Hold Purple Top VBG pH VBG pCO2 VBG pO2 VBG HCO3 VBG O2 Saturation VBG Base Excess Anion Gap 17 Estim Creat Clear Calc 158.7 Estimated GFR > 60 POC Glucose 243 H Random Glucose 337 H Estimat Average Glucose Hemoglobin A1c % Calcium 9.4 Total Bilirubin Direct Bilirubin AST ALT Alkaline Phosphatase Troponin I High Sens B-Natriuretic Peptide Total Protein Albumin Assessment and Plan (1) Asthma exacerbation: Status: Acute Plan 34-year-old male with pertinent history of mood disorder, asthma not on home oxygen who presents to the emergency department for evaluation of dyspnea. Acute hypoxemic respiratory failure due to acute exacerbation of asthma, improving, continue nebs, iv steroid, change to PO prednisone at DC for 5 days Mood disorder: Not on meds prsently, Hypokalemia--repleted and will recheck Opioid dependence--continue Methadone Hyperglycemia, d/t steroid, impaired glucose tolerance.. Hemoglobin A1C is 5.3 monitor with POCs and if remains high add sliding, scale discussed with patient that he might need med management if number remains high, random sugar before steroid was normal. DVT prophylaxis: Lovenox Full code need for inpt; asthma exacerbation with acure resp failure, hypoxia Quality Stroke Does the patient have a stroke diagnosis?: No VTE Prior VTE?: No VTE Risk Level:: Medical - moderate - high VTE Device Contraindication: Treatment Not Indicated VTE Drug Contraindication: N/A - Med Ordered
[2024-04-08 14:38] LABS: Glucose, Whole Blood 167 mg/dL (60-115)
[2024-04-08 15:54] LABS: Anion Gap 15 (12-20); Blood Urea Nitrogen 11 mg/dL (9-16); Calcium 9.8 mg/dL (8.4-10.2); Carbon Dioxide 26 mmol/L (22-29); Chloride 101 mmol/L (96-108); Creatinine Clr Calc Pharmacy 183.1; Estimated Glomerular Filt Rate > 60; Glucose Random 159 mg/dL (60-115); Sodium 138 mmol/L (135-145)
== END 2024-04-08 16:33 | disposition home or self-care (01) | DRG 141 ==
LOC: HO.ED 23:56 → HO.EDOVER 04-08 00:02 → HO.S3 04-08 02:17
PROVIDERS: Admitting Provider Student in an Organized Health Care Education/Training Program; Emergency Provider Emergency Medicine; PCP Internal Medicine; Visit Provider Internal Medicine
DX: J45.901 Unspecified asthma with (acute) exacerbation (principal); E87.6 Hypokalemia; R73.9 Hyperglycemia, unspecified; T38.0X5A Adverse effect of glucocorticoids and synthetic analogues, initial encounter; F39 Unspecified mood [affective] disorder; F11.20 Opioid dependence, uncomplicated; Z87.891 Personal history of nicotine dependence; Z79.899 Other long term (current) drug therapy
CPT/HCPCS: 36415; 71045; 80048; 80076; 82803; 82947; 83036; 83880; 84484; 85025; 93005; 94640; 99285; J1650; J2919; J3475

== ENCOUNTER → 2024-04-07 22:26 | Outpatient (BNV) | payer OTHER, SELFPAY | PROVIDERS: Admitting Provider Student in an Organized Health Care Education/Training Program; Emergency Provider Emergency Medicine; PCP Internal Medicine; Visit Provider Internal Medicine | DX: R07.9 Chest pain, unspecified (principal) | CPT/HCPCS: 93010 ==

== ENCOUNTER → 2024-04-07 23:57 | Outpatient (BNV) | payer OTHER, SELFPAY | PROVIDERS: Admitting Provider Student in an Organized Health Care Education/Training Program; Emergency Provider Emergency Medicine; Visit Provider Student in an Organized Health Care Education/Training Program | DX: J45.901 Unspecified asthma with (acute) exacerbation (principal) | CPT/HCPCS: 99222; 99239 ==

== ENCOUNTER 2024-08-07 21:08 | Emergency (ER) | payer OTHER, SELFPAY ==
--- NOTE | 2024-08-07 | ECG_ITS ---
Test Reason : dyspnea Blood Pressure : / mmHG Vent. Rate : 081 BPM Atrial Rate : 081 BPM P-R Int : 128 ms QRS Dur : 082 ms QT Int : 360 ms P-R-T Axes : 071 082 052 degrees QTc Int : 418 ms Normal sinus rhythm Right atrial enlargement Borderline ECG When compared with ECG of 07-APR-2024 22:26, No significant change was found Referred By: Generic ED Physician Electronically Signed By:ZACH SALCEDO
--- NOTE | ~2024-08-07 | XR_ITS ---
EXAMINATION: XR CHEST CLINICAL INFORMATION: Dyspnea. Hypoxia. COMPARISON: Chest x-ray April 07, 2024 TECHNIQUE: Frontal view of the chest was obtained. FINDINGS: No significant abnormality is noted involving the heart, lungs, mediastinum, bony thorax or soft tissues. XR/XR chest 1V IMPRESSION: Unremarkable examination. Electronically signed by: Daniel Jones MD 08/07/2024 10:27 PM EDT RP
[2024-08-07 21:11] VITALS: BP 136/102; PULSE 85; RESP 24; TEMP 36.8; O2SAT 87; BMI 23.9
[2024-08-07] MEDS: Albuterol Sulfate 7.5 MG, Albuterol/Iprat 2.5/0.5MG 3 ML 3 ML INHALE (21:32)
[2024-08-07 21:38] VITALS: PULSE 79; RESP 22; O2SAT 92
--- NOTE | 2024-08-07 21:57 | ED.SOB ---
HPI - SOB/Dyspnea General Chief Complaint: Dyspnea Stated Complaint: asthma/sob Time Seen by Provider: 08/07/24 21:53 Source: patient Mode of arrival: ambulatory Limitations: no limitations History of Present Illness ED Provider: Dr. Val Espinoza HPI Narrative: patient comes to the emergency room complaining of 2 days of an asthma exacerbation. Patient states that he ran out of his oxygen 2 days ago. When patient arrived to triage, oxygen saturation between 87-89%. Patient denies chest pain. Denies any recent URIs, fever chills Related Data Home Medications ?Medication ?Instructions ?Recorded ?Confirmed methadone 10 mg/mL oral concentrate 95 mg PO DAILY 04/08/24 04/08/24 Previous Rx's ?Medication ?Instructions ?Recorded albuterol sulfate 90 mcg/actuation 2 puff inhalation Q4-6H PRN 10/14/23 aerosol inhaler (ProAir HFA) shortness of breath or wheezing #8.5 grams nebulizers #1 ea 10/14/23 albuterol sulfate 2.5 mg/3 mL 2.5 mg (3 mL) inhalation Q4-6H PRN 04/08/24 (0.083 %) solution for nebulization bronchospasm #90 mL albuterol sulfate 90 mcg/actuation 2 inh inhalation Q6-8H PRN 04/08/24 aerosol inhaler shortness of breath or wheezing #18 grams alcohol swabs 1 pad topical QIDACHS #100 ea 04/08/24 blood-glucose meter (FreeStyle #1 ea 04/08/24 Lite Meter kit) lancets 28 gauge (FreeStyle #100 ea 04/08/24 Lancets) prednisone 20 mg tablet 40 mg (2 x 20 mg) PO DAILY #6 tabs 04/08/24 albuterol sulfate 90 mcg/actuation 2 puff inhalation Q4-6H PRN 08/08/24 aerosol inhaler shortness of breath or wheezing #8.5 grams prednisone 50 mg tablet 50 mg PO DAILY #4 tabs 08/08/24 Allergies Allergy/AdvReac Type Severity Reaction Status Date / Time acetaminophen [From Tylenol] AdvReac Gastrointestinal Verified 08/07/24 21:14 Upset Review of Systems Review of Systems: Constitutional : No Weight loss, No Fever, No Chills, No Night Sweats, No Fatigue, No Malaise ENT/Mouth : No Hearing loss, No Ear Pain, No Nasal Congestion, No Sinus Pain, No Hoarseness, No sore throat, No Rhinorrhea, No Swallowing Difficulty Eyes: No Eye Pain, No Swelling, No Redness, No Foreign Body, No Discharge, No Vision Changes Cardiovascular : No Chest Pain, No SOB, No Dyspnea on Exertion, No Orthopnea, No Edema, No Palpitations Respiratory : complaining of an asthma exacerbation, wheezing Gastrointestinal : No Nausea, No Vomiting, No Diarrhea, No Constipation, No abdominal Pain, No Hematochezia, No Melena Genitourinary : no irregular bleeding, No Dysuria, No Urinary Frequency, No Hematuria, No Urinary Incontinence, No Urgency, No Flank Pain, No Urinary Flow Changes, No Hesitancy Musculoskeletal : No joint pain, No Myalgias, No Joint Swelling Skin : No Skin Lesions, No rash Neuro : No Weakness, No Numbness, No Paresthesias, No Loss of Consciousness, No Dizziness, No Headache Psych : No Anxiety/Panic, No Depression, No SI/HI/AH/VH, No Social Issues, Heme/Lymph: No Bruising, No Bleeding,No Lymphadenopathy Endocrine : No Polyuria, No Polydipsia, No Temperature Intolerance PMFSH Past Medical History Medical History Asthma Social History Social History Household Members: None Housing: Apartment Do you presently have visiting nurse or other home services: No Patient Tobacco Use Status: Former Tobacco user Use of substances other than those prescribed or required for medical reasons: No Advance Directives: No Advance Directives Information Provided: No Do you have a plan to hurt others: No Plan service: No Physical Exam Vital Signs: Vital Signs: Last Vital Signs Temp 98.2 F 08/07/24 21:11 Pulse 86 08/08/24 00:19 Resp 16 08/08/24 00:19 BP 122/63 08/08/24 00:19 Pulse Ox 94 08/08/24 00:19 O2 Del Method Room Air 08/08/24 00:19 BMI result Body Mass Index 23.9 Const: Other: Appearance: Alert. Oriented X3. No acute distress. Eyes: Pupils equal, round and reactive to light. ENT: Pharynx normal. Neck: Normal inspection. Neck supple. No lymph nodes noted. No crepitus CVS: Normal heart rate and rhythm. Pulses normal. Normal S1 and S2 Respiratory: talking full sentence, oxygen saturation 87-89% on room air. On 2 L of oxygen. Abdomen: Soft and nontender. No rigidity. No distention. Skin: Skin warm and dry. Normal skin color. Normal skin turgor. Extremities: No lower extremity edema. No Lacerations. No Rash Neuro: Oriented X 3. No motor deficit. No sensory deficit. Moving all extremities. No slurred speech. CN 2 through 12 grossly intact Psych: calm, cooperative, normal affect Course Course Course Narrative: All of patient's labs and imaging pending patient receiving albuterol, IV magnesium and Solu-Medrol Medications Administered Discontinued Medications Generic Name Dose Route Start Last Admin Trade Name Freq PRN Reason Stop Dose Admin Albuterol Sulfate 7.5 mg/ 0 mg 08/07/24 21:28 08/07/24 21:32 Albuterol/Ipratropium 3 ml INHALE 08/07/24 21:29 1 each ONCE ONE Administration Albuterol Sulfate 5 mg/ 0 mg 08/07/24 22:05 08/07/24 22:16 Albuterol/Ipratropium 3 ml INHALE 08/07/24 22:06 1 each ONCE ONE Administration Magnesium Sulfate 2 gm in 50 mls @ 25 mls/hr 08/07/24 21:53 08/07/24 21:58 Magnesium Sulfate/H2o IV 08/07/24 23:52 25 mls/hr ONCE ONE Administration Methylprednisolone Sodium Succinate 125 mg 08/07/24 21:53 08/07/24 21:58 Methylprednisolone Sod Succ 125 Mg/2 Ml Vial IVPUSH 08/07/24 21:54 125 mg ONCE ONE Administration Medical Decision Making Medical Decision Making [facility] Narrative: - after the IV treatment a nebulization treatment, patient no longer wheezing. Breathing comfortably, oxygen saturation 95% on room air. - Patient was ambulated in the ED, oxygen saturation 95-96% - patient feels well to go home. Differential Diagnosis Differential Diagnoses: The differential diagnosis associated with the presentation includes ( Asthma, viral URI) Admission/Observation Consideration of admission/observation: Escalation of care including admission/observation considered ( given patient's initial presentation and low oxygen saturation, observation/ admission was considered) Lab Data [facility] Lab Attestation statement: I reviewed the patient's lab results. 08/07/24 21:42 08/07/24 21:42 Labs: Lab Results 08/07/24 08/07/24 Range/Units 21:42 22:06 WBC 8.5 (4.8-10.8) X10*3/uL RBC 4.85 (4.60-5.80) X10*6/uL Hgb 14.3 (14.0-18.0) g/dl Hct 42.3 (42.0-52.0) % MCV 87.2 (80.0-98.0) fL MCH 29.5 (27.0-33.0) pg MCHC 33.8 (31.0-36.0) g/dl RDW 12.1 (11.0-16.0) % Plt Count 305 (160-400) X10*3/uL MPV 10.9 (9.4-12.4) fL Immature Gran % (Auto) 0.2 (0.0-0.4) % Neut % (Auto) 53.7 (45-73) % Lymph % (Auto) 22.9 (20-40) % Harrison % (Auto) 8.1 (2-11) % Eos % (Auto) 14.0 H (0-4) % Baso % (Auto) 1.1 (0-2) % Lymph # (Auto) 1.9 (1.2-4.9) X10*3/uL Harrison # (Auto) 0.7 (0.1-1.2) X10*3/uL Eos # (Auto) 1.2 H (0.0-0.4) X10*3/uL Baso # (Auto) 0.1 (0.0-0.2) X10*3/uL Abs Immat Gran (auto) 0.02 (0.00-0.03) X10*3/uL Absolute Neuts (auto) 4.6 (2.0-8.3) x10*3/uL Absolute Nucleated RBC 0.000 (0.0-0.012) X10*3/uL Nucleated RBC % (auto) 0.0 (0.0-0.2) /100WBC PT 12.7 H (10.9-12.4) SEC INR 1.1 (0.9-1.1) VBG pH 7.40 (7.32-7.43) VBG pCO2 56 mmHg VBG pO2 94 mmHg VBG HCO3 35 H (22-26) mmol/L VBG O2 Saturation 98.0 % VBG Base Excess 8.8 mmol/L Sodium 139 (135-145) mmol/L Potassium 3.8 (3.3-5.1) mmol/L Chloride 100 (96-108) mmol/L Carbon Dioxide 30 H (22-29) mmol/L Anion Gap 13 (12-20) BUN 6 L (9-16) mg/dL Creatinine 0.62 (0.5-1.4) mg/dL Estim Creat Clear Calc 175.4 Estimated GFR > 60 Random Glucose 135 H (60-115) mg/dL Calcium 9.3 (8.4-10.2) mg/dL Total Bilirubin 1.0 (0.0-1.0) mg/dL AST 22 (5-37) U/L ALT 8 (0-40) U/L Alkaline Phosphatase 70 (39-117) U/L Troponin I High Sens 8.7 D (<3.5-35.0) ng/L B-Natriuretic Peptide 20 (<100) pg/mL Total Protein 7.7 (6.5-8.0) g/dL Albumin 3.9 (3.5-5.0) g/dL Influenza Type A (PCR) NEGATIVE (Negative) Influenza Type B (PCR) NEGATIVE (Negative) RSV RNA Qual (PCR) NEGATIVE (Negative) SARS-CoV-2 RNA (RT-PCR) NEGATIVE (Negative) Independent Interpretation I performed an independent interpretation of an: Plain X-Ray Radiology Impression Discussion of test interpretation with radiology: I have reviewed the radiologist's reading. Radiologist Impression: No significant abnormality is noted involving the heart, lungs, mediastinum, bony thorax or soft tissues. XR/XR chest 1V IMPRESSION: Unremarkable examination. Critical Care Time Critical Care Time Critical Care Time: Yes Total Critical Care Time: 45 Attestation: I have personally provided critical care time. Time includes review of lab data, radiology results, discussion with consultants, and monitoring for potential decompensation. Intervention performed as documented. Discharge Plan Discharge Clinical Impression: Asthma with exacerbation Patient Disposition: Home, Self-Care Instructions: Asthma (ED) Additional Instructions: Please follow-up with your primary care physician tomorrow. If you have any worsening or new symptoms, please return to the emergency room or call 911 Prescriptions: New prednisone 50 mg tablet 50 mg PO DAILY Qty: 4 0RF albuterol sulfate 90 mcg/actuation HFA aerosol inhaler 2 puff inhalation Q4-6H PRN (Reason: shortness of breath or wheezing) Qty: 8.5 1RF No Action methadone 10 mg/mL Concentrate 95 mg PO DAILY prednisone 20 mg tablet 40 mg PO DAILY Qty: 6 0RF albuterol sulfate 2.5 mg /3 mL (0.083 %) solution for nebulization 2.5 mg inhalation Q4-6H PRN (Reason: bronchospasm) Qty: 90 0RF (DME) blood-glucose meter [FreeStyle Lite Meter] Kit Qty: 1 0RF Rx Instructions: As Directed for times a day alcohol swabs Pads, Medicated 1 pad TOPICAL QIDACHS Qty: 100 0RF Rx Instructions: Use four times a day or as directed. (DME) lancets [FreeStyle Lancets] 28 gauge misc Qty: 100 0RF Rx Instructions: Test four times a day or as directed. albuterol sulfate 90 mcg/actuation HFA aerosol inhaler 2 inh inhalation Q6-8H PRN (Reason: shortness of breath or wheezing) Qty: 18 1RF (DME) nebulizers Misc See Rx Instructions .Route Qty: 1 0RF Rx Instructions: As directed albuterol sulfate [ProAir HFA] 90 mcg/actuation HFA aerosol inhaler 2 puff inhalation Q4-6H PRN (Reason: shortness of breath or wheezing) Qty: 8.5 0RF Print Language: Kittitian
[2024-08-07] MEDS: methylPREDNISolone Sod Succ 125 MG/2 ML VIAL IVPUSH (21:58)
[2024-08-07] MEDS: Magnesium Sulfate/H2O 2 GM/50 ML PIGGYBACK IV (21:58)
[2024-08-07 22:05] LABS: MANUAL DIFF FLAG NO
[2024-08-07 22:07] LABS: Basophils Absolute Auto 0.1 X10*3/uL (0.0-0.2); Basophils Percent Auto 1.1 % (0-2); Eosinophils Absolute Auto 1.2 X10*3/uL (0.0-0.4); Hematocrit 42.3 % (42.0-52.0); Hemoglobin 14.3 g/dl (14.0-18.0); Imm Gran Abs Auto 0.02 X10*3/uL (0.00-0.03); Imm Gran Pct Auto 0.2 % (0.0-0.4); Lymphocytes Absolute Auto 1.9 X10*3/uL (1.2-4.9); Lymphocytes Percent Auto 22.9 % (20-40); Mean Corpuscular HGB Conc 33.8 g/dl (31.0-36.0); Mean Corpuscular Hemoglobin 29.5 pg (27.0-33.0); Mean Corpuscular Volume 87.2 fL (80.0-98.0); Mean Platelet Volume 10.9 fL (9.4-12.4); Monocytes Absolute Auto 0.7 X10*3/uL (0.1-1.2); Monocytes Percent Auto 8.1 % (2-11); Neutrophils Absolute Auto 4.6 x10*3/uL (2.0-8.3); Neutrophils Percent Auto 53.7 % (45-73); Platelet Count 305 X10*3/uL (160-400); Red Blood Count 4.85 X10*6/uL (4.60-5.80); Red Cell Distribution Width 12.1 % (11.0-16.0); White Blood Count 8.5 X10*3/uL (4.8-10.8)
[2024-08-07 22:16] VITALS: PULSE 90; RESP 20; O2SAT 92
[2024-08-07] MEDS: Albuterol Sulfate 5 MG, Albuterol/Iprat 2.5/0.5MG 3 ML 3 ML INHALE (22:16)
[2024-08-07 22:22] LABS: VBG Base Excess 8.8 mmol/L; VBG HCO3 35 mmol/L (22-26); VBG pCO2 56 mmHg; VBG pO2 94 mmHg
[2024-08-07 22:23] LABS: Venous Blood Gas Refer to POC result
[2024-08-07 22:24] LABS: Alanine Aminotransferase 8 U/L (0-40); Albumin Level 3.9 g/dL (3.5-5.0); Alkaline Phosphatase 70 U/L (39-117); Anion Gap 13 (12-20); Aspartate Amino Transferase 22 U/L (5-37); Blood Urea Nitrogen 6 mg/dL (9-16); Calcium 9.3 mg/dL (8.4-10.2); Carbon Dioxide 30 mmol/L (22-29); Chloride 100 mmol/L (96-108); Creatinine Clr Calc Pharmacy 175.4; Estimated Glomerular Filt Rate > 60; Glucose Random 135 mg/dL (60-115); Potassium 3.8 mmol/L (3.3-5.1); Sodium 139 mmol/L (135-145); Total Protein 7.7 g/dL (6.5-8.0)
[2024-08-07 22:31] LABS: B Type Natriuretic Peptide 20 pg/mL (<100)
[2024-08-07 22:33] LABS: Troponin-I High Sensitivity 8.7 ng/L (<3.5-35.0)
[2024-08-07 22:38] LABS: INTERNATIONAL NORM RATIO 1.1 (0.9-1.1); Prothrombin Time 12.7 SEC (10.9-12.4)
[2024-08-07 22:48] LABS: Influenza A PCR NEGATIVE (Negative); Influenza B PCR NEGATIVE (Negative); Resp Syncy Virus RNA Qual PCR NEGATIVE (Negative); SARS COV2 PCR INHOUSE NEGATIVE (Negative)
[2024-08-07 22:49] VITALS: BP 103/57; PULSE 96; RESP 20; O2SAT 91
[2024-08-08 00:19] VITALS: BP 122/63; PULSE 86; RESP 16; O2SAT 94
[2024-08-08 00:46] VITALS: O2SAT 95
[2024-08-08 01:28] VITALS: BP 122/63; PULSE 86; RESP 16; TEMP 36.8; O2SAT 95
== END 2024-08-08 01:00 | disposition home or self-care (01) ==
PROVIDERS: Emergency Provider Emergency Medicine; PCP Internal Medicine
DX: J45.901 Unspecified asthma with (acute) exacerbation (principal); Z03.818 Encounter for observation for suspected exposure to other biological agents ruled out; R06.02 Shortness of breath
CPT/HCPCS: 0241U; 36415; 71045; 80053; 82803; 83880; 84484; 85025; 85610; 93005; 94640; 96365; 96366; 96375; 99284; 99285; J2919; J3475

== ENCOUNTER → 2024-08-07 21:43 | Outpatient (BNV) | payer OTHER, SELFPAY | PROVIDERS: Emergency Provider Emergency Medicine; PCP Internal Medicine; Visit Provider Internal Medicine | DX: R06.00 Dyspnea, unspecified (principal) | CPT/HCPCS: 93010 ==

== ENCOUNTER 2024-11-05 09:31 | Observation (INO) | payer OTHER, SELFPAY ==
[2024-11-05] VITALS (10 sets, daily range): BP systolic 105–139; BP diastolic 58–107; PULSE 64–88; RESP 11–30; TEMP 36–36.8; O2SAT 88–97; BMI 22.2
--- NOTE | ~2024-11-05 | XR_ITS ---
EXAMINATION: XR CHEST CLINICAL INFORMATION: dyspnea COMPARISON: None available. TECHNIQUE: Frontal view of the chest was obtained. FINDINGS: No significant abnormality is noted involving the heart, lungs, mediastinum, bony thorax or soft tissues. XR/XR chest 1V IMPRESSION: Unremarkable chest examination. Electronically signed by: Ganga Mcleod MD 11/05/2024 10:30 AM [facility] [place]
[2024-11-05] MEDS: Albuterol Sulfate 5 MG, Albuterol/Iprat 2.5/0.5MG 3 ML 3 ML INHALE (09:54)
--- NOTE | 2024-11-05 10:05 | ED.ASTHMA ---
HPI - Asthma General Chief Complaint: Dyspnea Stated Complaint: Diff breathing Time Seen by Provider: 11/05/24 09:41 Source: patient and old records reviewed Mode of arrival: ambulatory Limitations: no limitations History of Present Illness ED Provider: EMA ROMERO Narrative: 34 yo male with PMH of asthma no prior intubations last prednisone in August here with c/o asthma exacerbation dry cough no fevers x 2 days. He states nebs are not working and he has no more albuterol liquid. He denies travel, n/v/d, sick contacts. Last admit was in April. Has mild chest tightness which he gets with asthma. he states this happens all the time. He is not a smoker. MD complaint: asthma attack , shortness of breath and wheezing Onset (ago): day(s) (2) Severity: moderate Context: none known and ran out of meds Associated symptoms: dry cough Asthma History: childhood onset Treatments Prior to Arrival: inhaled bronchodilator Related Data Home Medications ?Medication ?Instructions ?Recorded ?Confirmed methadone 10 mg/mL oral concentrate 95 mg PO DAILY 04/08/24 04/08/24 Previous Rx's ?Medication ?Instructions ?Recorded albuterol sulfate 90 mcg/actuation 2 puff inhalation Q4-6H PRN 10/14/23 aerosol inhaler (ProAir HFA) shortness of breath or wheezing #8.5 grams nebulizers #1 ea 10/14/23 albuterol sulfate 2.5 mg/3 mL 2.5 mg (3 mL) inhalation Q4-6H PRN 04/08/24 (0.083 %) solution for nebulization bronchospasm #90 mL albuterol sulfate 90 mcg/actuation 2 inh inhalation Q6-8H PRN 04/08/24 aerosol inhaler shortness of breath or wheezing #18 grams alcohol swabs 1 pad topical QIDACHS #100 ea 04/08/24 blood-glucose meter (FreeStyle #1 ea 04/08/24 Lite Meter kit) lancets 28 gauge (FreeStyle #100 ea 04/08/24 Lancets) prednisone 20 mg tablet 40 mg (2 x 20 mg) PO DAILY #6 tabs 04/08/24 albuterol sulfate 90 mcg/actuation 2 puff inhalation Q4-6H PRN 08/08/24 aerosol inhaler shortness of breath or wheezing #8.5 grams prednisone 50 mg tablet 50 mg PO DAILY #4 tabs 08/08/24 albuterol sulfate 2.5 mg/3 mL 2.5 mg (3 mL) inhalation Q4-6H PRN 08/09/24 (0.083 %) solution for nebulization shortness of breath or wheezing #75 mL Allergies Allergy/AdvReac Type Severity Reaction Status Date / Time acetaminophen [From Tylenol] AdvReac Gastrointestinal Verified 11/05/24 09:38 Upset Review of Systems Review of Systems: Constitutional : No Fever, No Chills ENT/Mouth : No Hoarseness, No sore throat, No Rhinorrhea Eyes: No Redness, No Discharge, No Vision Changes Cardiovascular : No Chest Pain, positive SOB, positive Dyspnea on Exertion, No Edema Respiratory : positive Cough, No Sputum, positive Wheezing, Gastrointestinal : No Nausea, No Vomiting, No Diarrhea, No abdominal Pain Genitourinary : No Dysuria, No Hematuria Musculoskeletal : No joint pain, No Myalgias Skin : No rash Neuro : No Weakness, No Numbness, No Headache All other systems reviewed and are negative [facility] Past Medical History Attestation statement: The following information was validated with the patient. Source: old records reviewed Medical History Asthma Social History Social History Household Members: None Housing: Apartment Do you presently have visiting nurse or other home services: No Patient Tobacco Use Status: Former Tobacco user Advance Directives: No Advance Directives Information Provided: Yes service: No Physical Exam Vital Signs: Vital Signs: Last Vital Signs Temp 97.6 F 11/05/24 11:56 Pulse 78 11/05/24 12:29 Resp 16 11/05/24 12:29 BP 117/69 11/05/24 11:56 Pulse Ox 88 L 11/05/24 12:29 O2 Del Method Room Air 11/05/24 12:29 BMI result Body Mass Index 22.2 Appearance: Alert. Oriented X3. mild acute distress. Eyes: Pupils equal, round and reactive to light. ENT: Pharynx normal. Neck: Normal inspection. Neck supple. CVS: tachycardic heart rate and rhythm. Pulses normal. Respiratory: mid respiratory distress retractions and tachypnea. Breath sounds very diminished and diffuse exp wheezes Abdomen: Soft and nontender. Skin: Skin warm and dry. Normal skin color. Normal skin turgor. Extremities: No lower extremity edema. No calf ttp Neuro: Oriented X 3. No motor deficit. No sensory deficit. CN2-12 intact Medications Administered Discontinued Medications Generic Name Dose Route Start Last Admin Trade Name Rikiq PRN Reason Stop Dose Admin Albuterol Sulfate 5 mg/ 0 mg 11/05/24 09:52 11/05/24 09:54 Albuterol/Ipratropium 3 ml INHALE 11/05/24 09:53 1 each ONCE ONE Administration Albuterol Sulfate 2.5 mg/ 0 mg 11/05/24 12:09 11/05/24 12:11 Albuterol/Ipratropium 3 ml INHALE 11/05/24 12:10 1 dose ONCE ONE Administration Magnesium Sulfate 2 gm in 50 mls @ 150 mls/hr 11/05/24 09:43 11/05/24 10:51 Magnesium Sulfate/H2o IV 11/05/24 10:02 Infused ONCE ONE Infusion Methylprednisolone Sodium Succinate 60 mg 11/05/24 09:43 11/05/24 10:30 Methylprednisolone Sod Succ 125 Mg/2 Ml Vial IVPUSH 11/05/24 09:44 60 mg ONCE ONE Administration Medical Decision Making Medical Decision Making [facility] Narrative: 34 yo male with PMH of asthma no prior intubations last prednisone in August here with c/o diffuse wheezes and labored breathing at this time c/o 2 days of asthma exacerbation will need basic labs, CXR, viral panel, IV steroids, IV magnesium. No infectious symptoms feels like his prior asthma attacks doubt CP/VTE. Differential Diagnosis Differential Diagnoses: The differential diagnosis associated with the presentation includes asthma, URI, hypoxia Admission/Observation Consideration of admission/observation: Escalation of care including admission/observation considered admit given hypoxia Consult Healthcare Provider Management of the patient was discussed with: Hospitalist (will admit) Lab Data [facility] Lab Attestation statement: I reviewed the patient's lab results. 11/05/24 09:59 11/05/24 09:59 Labs: Lab Results 11/05/24 11/05/24 Range/Units 09:59 10:12 WBC 7.1 (4.8-10.8) X10*3/uL RBC 4.54 L (4.60-5.80) X10*6/uL Hgb 13.3 L (14.0-18.0) g/dl Hct 39.0 L (42.0-52.0) % MCV 85.9 (80.0-98.0) fL MCH 29.3 (27.0-33.0) pg MCHC 34.1 (31.0-36.0) g/dl RDW 12.1 (11.0-16.0) % Plt Count 237 (160-400) X10*3/uL MPV 11.0 (9.4-12.4) fL Immature Gran % (Auto) 0.1 (0.0-0.4) % Neut % (Auto) 71.2 (45-73) % Lymph % (Auto) 15.2 L (20-40) % Daniels % (Auto) 7.2 (2-11) % Eos % (Auto) 5.4 H (0-4) % Baso % (Auto) 0.9 (0-2) % Lymph # (Auto) 1.1 L (1.2-4.9) X10*3/uL Daniels # (Auto) 0.5 (0.1-1.2) X10*3/uL Eos # (Auto) 0.4 (0.0-0.4) X10*3/uL Baso # (Auto) 0.1 (0.0-0.2) X10*3/uL Abs Immat Gran (auto) 0.01 (0.00-0.03) X10*3/uL Absolute Neuts (auto) 5.0 (2.0-8.3) x10*3/uL Absolute Nucleated RBC 0.000 (0.0-0.012) X10*3/uL Nucleated RBC % (auto) 0.0 (0.0-0.2) /100WBC VBG pH 7.49 H (7.32-7.43) VBG pCO2 41 mmHg VBG pO2 130 mmHg VBG HCO3 31 H (22-26) mmol/L VBG O2 Saturation 99.0 % VBG Base Excess 7.8 mmol/L Sodium 138 (135-145) mmol/L Potassium 3.6 (3.3-5.1) mmol/L Chloride 103 (96-108) mmol/L Carbon Dioxide 27 (22-29) mmol/L Anion Gap 12 (12-20) BUN 7 L (9-16) mg/dL Creatinine 0.59 (0.5-1.4) mg/dL Estim Creat Clear Calc 176.5 Estimated GFR > 60 Random Glucose 121 H (60-115) mg/dL Calcium 9.4 (8.4-10.2) mg/dL Magnesium 1.8 (1.6-2.6) mg/dL Total Bilirubin 1.2 H (0.0-1.0) mg/dL Direct Bilirubin 0.4 (0.0-0.5) mg/dL AST 19 (5-37) U/L ALT < 6 (0-40) U/L Alkaline Phosphatase 69 (39-117) U/L Total Protein 7.7 (6.5-8.0) g/dL Albumin 4.0 (3.5-5.0) g/dL Independent Interpretation I performed an independent interpretation of an: Plain X-Ray (normal ) Radiology Impression Discussion of test interpretation with radiology: I have reviewed the radiologist's reading. External Record Review External record reviewed: Inpatient record and Outpatient record Prescription Management I considered prescription management with: Other Critical Care Time Critical Care Time Critical Care Time: Yes Total Critical Care Time: 45 Attestation: IV magnesium, repeat nebs, hypoxia correction I attest to this time spent taking care of the patient Discharge Plan Discharge Clinical Impression: Asthma with exacerbation, Hypoxia Patient Disposition: Admitted As Inpatient Prescriptions: No Action methadone 10 mg/mL Concentrate 95 mg PO DAILY prednisone 20 mg tablet 40 mg PO DAILY Qty: 6 0RF albuterol sulfate 2.5 mg /3 mL (0.083 %) solution for nebulization 2.5 mg inhalation Q4-6H PRN (Reason: bronchospasm) Qty: 90 0RF (DME) blood-glucose meter [FreeStyle Lite Meter] Kit Qty: 1 0RF Rx Instructions: As Directed for times a day alcohol swabs Pads, Medicated 1 pad TOPICAL QIDACHS Qty: 100 0RF Rx Instructions: Use four times a day or as directed. (DME) lancets [FreeStyle Lancets] 28 gauge misc Qty: 100 0RF Rx Instructions: Test four times a day or as directed. albuterol sulfate 90 mcg/actuation HFA aerosol inhaler 2 inh inhalation Q6-8H PRN (Reason: shortness of breath or wheezing) Qty: 18 1RF (DME) nebulizers Misc See Rx Instructions .Route Qty: 1 0RF Rx Instructions: As directed albuterol sulfate [ProAir HFA] 90 mcg/actuation HFA aerosol inhaler 2 puff inhalation Q4-6H PRN (Reason: shortness of breath or wheezing) Qty: 8.5 0RF prednisone 50 mg tablet 50 mg PO DAILY Qty: 4 0RF albuterol sulfate 90 mcg/actuation HFA aerosol inhaler 2 puff inhalation Q4-6H PRN (Reason: shortness of breath or wheezing) Qty: 8.5 1RF albuterol sulfate 2.5 mg /3 mL (0.083 %) solution for nebulization 2.5 mg inhalation Q4-6H MDD 12 PRN (Reason: shortness of breath or wheezing) Qty: 75 0RF Print Language: Spanish
[2024-11-05 10:07] LABS: MANUAL DIFF FLAG NO
[2024-11-05 10:09] LABS: Basophils Absolute Auto 0.1 X10*3/uL (0.0-0.2); Basophils Percent Auto 0.9 % (0-2); Eosinophils Absolute Auto 0.4 X10*3/uL (0.0-0.4); Eosinophils Percent Auto 5.4 % (0-4); Hemoglobin 13.3 g/dl (14.0-18.0); Imm Gran Abs Auto 0.01 X10*3/uL (0.00-0.03); Imm Gran Pct Auto 0.1 % (0.0-0.4); Lymphocytes Absolute Auto 1.1 X10*3/uL (1.2-4.9); Lymphocytes Percent Auto 15.2 % (20-40); Mean Corpuscular HGB Conc 34.1 g/dl (31.0-36.0); Mean Corpuscular Hemoglobin 29.3 pg (27.0-33.0); Mean Corpuscular Volume 85.9 fL (80.0-98.0); Monocytes Absolute Auto 0.5 X10*3/uL (0.1-1.2); Monocytes Percent Auto 7.2 % (2-11); Neutrophils Percent Auto 71.2 % (45-73); Platelet Count 237 X10*3/uL (160-400); Red Blood Count 4.54 X10*6/uL (4.60-5.80); Red Cell Distribution Width 12.1 % (11.0-16.0); White Blood Count 7.1 X10*3/uL (4.8-10.8)
[2024-11-05 10:16] LABS: Venous Blood Gas Refer to POC result
[2024-11-05 10:17] LABS: VBG Base Excess 7.8 mmol/L; VBG HCO3 31 mmol/L (22-26); VBG pCO2 41 mmHg; VBG pH 7.49 (7.32-7.43); VBG pO2 130 mmHg
[2024-11-05] MEDS: methylPREDNISolone Sod Succ 125 MG/2 ML VIAL 60 MG IVPUSH (10:30)
[2024-11-05] MEDS: Magnesium Sulfate/H2O 2 GM/50 ML PIGGYBACK IV (10:31)
[2024-11-05 10:37] LABS: Alanine Aminotransferase < 6 U/L (0-40); Alkaline Phosphatase 69 U/L (39-117); Anion Gap 12 (12-20); Aspartate Amino Transferase 19 U/L (5-37); Bilirubin Direct 0.4 mg/dL (0.0-0.5); Bilirubin Total 1.2 mg/dL (0.0-1.0); Blood Urea Nitrogen 7 mg/dL (9-16); Calcium 9.4 mg/dL (8.4-10.2); Carbon Dioxide 27 mmol/L (22-29); Chloride 103 mmol/L (96-108); Creatinine Clr Calc Pharmacy 176.5; Estimated Glomerular Filt Rate > 60; Glucose Random 121 mg/dL (60-115); Magnesium 1.8 mg/dL (1.6-2.6); Potassium 3.6 mmol/L (3.3-5.1); Sodium 138 mmol/L (135-145); Total Protein 7.7 g/dL (6.5-8.0)
[2024-11-05] MEDS: Albuterol Sulfate 2.5 MG, Albuterol/Iprat 2.5/0.5MG 3 ML 3 ML INHALE (12:11)
--- NOTE | 2024-11-05 13:24 | PHA.MEDREC ---
Addendum entered by Edu Yañez RPh 11/05/24 14:10: Med rec checked by [facility] Original Note: Pharmacy Consult ? Medication Reconciliation Pharmacy has completed the medication reconciliation. Spoke with patient and he confirmed his medications. The patient confirmed he is still taking the Albuterol inhaler and the Albuterol Nebulization solution as needed for Shortness of breath and or wheezing. He confirmed he is still taking the Hydroxyzine 25mg tab once as needed for Anxiety. He also confirmed he is taking Methadone 110mg and states he is getting it from [facility]. He claims he took his methadone this morning.
--- NOTE | 2024-11-05 14:05 | P.HPHOSP_ITS ---
History of Present Illness Date of Service: 11/05/24 Chief Complaint: shortness of breath, wheezing The patient is a 34-year-old male with a self-reported history of asthma and prior substance use who presents to the emergency room with a 2 day history of progressive shortness of breath and wheezing with intermittent nonproductive cough. The patient reports he used his home inhalers without significant relief and hence he presented to the emergency room. He denies any chest pain or fevers. He denies any sick contacts. In the ED, the patient was treated with multiple rounds of bronchodilators and systemic steroids along with magnesium. He continued to be symptomatic and desaturated as low as 88% on room air. He has been placed on supplemental oxygen and admission has been requested. Viral testing is pending at the time of this note. Review of Systems 2 Review of Systems: Negative except HPI/interval history. [facility] Medical History Asthma Social History Household Members: None Housing: Apartment Do you presently have visiting nurse or other home services: No Patient Tobacco Use Status: Former Tobacco user Advance Directives: No Advance Directives Information Provided: Yes service: No Meds Allergies Allergy/AdvReac Type Severity Reaction Status Date / Time acetaminophen [From Tylenol] AdvReac Gastrointestinal Verified 11/05/24 09:38 Upset Active Medications: Current Medications Albuterol Sulfate (Albuterol Sulfate (0.083%) 2.5 Mg/3 Ml Vial.Neb) 2.5 mg INHALE Q4H PRN PRN Reason: Shortness of Breath/Wheezing Albuterol/Ipratropium (Albuterol/Iprat 2.5/0.5mg 3 Ml Ampul.Neb) 3 ml INHALE RQ4H WHILE AWAKE KETTY Calcium Carbonate (Calcium Carbonate 750 Mg Tab.Chew) 750 mg PO Q4H PRN PRN Reason: Heartburn Magnesium Hydroxide (Milk Of Magnesia 30 Ml Oral.Susp) 30 ml PO DAILY PRN PRN Reason: Constipation Melatonin (Melatonin 3 Mg Tablet) 6 mg PO BEDTIME PRN PRN Reason: Insomnia Methylprednisolone Sodium Succinate (Methylprednisolone Sod Succ 40 Mg/Ml Vial) 40 mg IVPUSH Q12H KETTY Sodium Chloride (0.9 % Sodium Chloride Flush 3 Ml Syringe) 3 ml IVFLUSH QSHIFT [facility] Home Medications ?Medication ?Instructions ?Recorded ?Confirmed ?Last Taken ?Type methadone 10 mg/mL oral concentrate 110 mg PO DAILY 04/08/24 04/08/24 Unknown History hydroxyzine HCl 25 mg tablet 25 mg PO TID PRN anxiety 11/05/24 11/05/24 Unknown History Physical Exam 2 Vital Signs and Narrative: Vital Signs: Last Vital Signs Temp 97.6 F 11/05/24 11:56 Pulse 78 11/05/24 12:29 Resp 16 11/05/24 12:29 BP 117/69 11/05/24 11:56 Pulse Ox 88 L 11/05/24 12:29 O2 Del Method Room Air 11/05/24 12:29 BMI result Body Mass Index 22.2 Const: Other: Constitutional - Awake and Alert, No apparent distress Eyes - PERRLA, EOMI Cardiovascular - S1S2, RRR, No edema Respiratory - comfortable on 2L, sats low 90s; scattered exp. wheezing Gastrointestinal - NT / ND; +BS; No rebound or guarding - No CVA tenderness Extremities - no calf tenderness bilaterally, no swelling Musculoskeletal - Normal inspection, normal ROM Skin - Warm/Dry Neurological - Alert & oriented x3, No focal deficit Psychological - Appropriate affect Results Labs 11/05/24 09:59 11/05/24 09:59 Labs: Laboratory Results - last 24 hr 11/05/24 11/05/24 09:59 10:12 MCV 85.9 MCH 29.3 MCHC 34.1 RDW 12.1 Plt Count 237 MPV 11.0 Immature Gran % (Auto) 0.1 Neut % (Auto) 71.2 Lymph % (Auto) 15.2 L Gordon % (Auto) 7.2 Eos % (Auto) 5.4 H Baso % (Auto) 0.9 Lymph # (Auto) 1.1 L Gordon # (Auto) 0.5 Eos # (Auto) 0.4 Baso # (Auto) 0.1 Abs Immat Gran (auto) 0.01 Absolute Neuts (auto) 5.0 Absolute Nucleated RBC 0.000 Nucleated RBC % (auto) 0.0 VBG pH 7.49 H VBG pCO2 41 VBG pO2 130 VBG HCO3 31 H VBG O2 Saturation 99.0 VBG Base Excess 7.8 Anion Gap 12 Estim Creat Clear Calc 176.5 Estimated GFR > 60 Random Glucose 121 H Calcium 9.4 Magnesium 1.8 Total Bilirubin 1.2 H Direct Bilirubin 0.4 AST 19 ALT < 6 Alkaline Phosphatase 69 Total Protein 7.7 Albumin 4.0 Imaging Radiologist's Impressions: Impressions Chest X-Ray 11/05/24 09:43 IMPRESSION: Unremarkable chest examination. Electronically signed by: Ganga Mcleod MD 11/05/2024 10:30 AM [facility] [place] and Plan (1) Asthma with exacerbation: Qualifiers: Asthma persistence: persistent Asthma severity: moderate Qualified Code(s): J45.41 - Moderate persistent asthma with (acute) exacerbation Status: Acute Plan 34 yo M being admitted for acute asthma excerbation 1. Acute resp failure with hypoxia due to acute exacerbation of moderate persistent asthma r/o underlying viral etiology pt denying any substance / tobacco use reports PRN albuterol use only at home, no controller meds continue nebublized bronchodialators scheduled + prn iv steroids 40mg bid o2 with goal of 92% full code dvt pptx - lovenox continue baseline meds once med rec completed. Quality Stroke Does the patient have a stroke diagnosis?: No VTE Prior VTE?: No VTE Risk Level:: Medical - moderate - high VTE Device Contraindication: N/A - Device Ordered VTE Drug Contraindication: N/A - Med Ordered
[2024-11-05 14:43] LABS: Influenza A PCR NEGATIVE (Negative); Influenza B PCR NEGATIVE (Negative); Resp Syncy Virus RNA Qual PCR NEGATIVE (Negative); SARS COV2 PCR INHOUSE NEGATIVE (Negative)
[2024-11-05] MEDS: methylPREDNISolone Sod Succ 40 MG/ML VIAL IVPUSH (17:05)
[2024-11-05] MEDS: 0.9 % Sodium Chloride Flush 3 ML SYRINGE IVFLUSH (17:06)
[2024-11-05] MEDS: Albuterol/Iprat 2.5/0.5MG 3 ML AMPUL.NEB INHALE (18:54)
[2024-11-05] MEDS: Melatonin 3 MG TABLET 6 MG PO (23:02)
[2024-11-05] MEDS: guaiFENesin 100 MG/5 ML 5 ML LIQUID PO (23:02)
[2024-11-06] VITALS: BP 115/59; PULSE 65; RESP 20; TEMP 36.2; O2SAT 92
[2024-11-06 04:00] VITALS: BP 126/77; PULSE 65; RESP 20; TEMP 36.8; O2SAT 92
[2024-11-06] MEDS: guaiFENesin 100 MG/5 ML 5 ML LIQUID PO (04:23)
[2024-11-06] MEDS: methylPREDNISolone Sod Succ 40 MG/ML VIAL IVPUSH (04:24)
[2024-11-06] MEDS: hydrOXYzine HCL 25 MG TABLET PO (04:46)
--- NOTE | 2024-11-06 07:14 | HE.PHANOTE ---
METHADONE Pt last received 110 mg don 11/05/24 @ 0917 per [facility]. Pt receives from [facility], .
[2024-11-06 07:27] VITALS: BP 116/60; PULSE 53; RESP 18; TEMP 36.2; O2SAT 97
--- NOTE | 2024-11-06 08:31 | MHC.CM.PN ---
Lesly 11/06/24, Pt lives alone, he is functionally independent, no home health services or DME. He goes to [facility] for Methadone. He is able to get transport home at [place]. PCP: Homar Bush, HCP discussed, pt. declined to complete form. DCP: home, self care, CM to follow for DC needs.
[2024-11-06] MEDS: methADONE HCl 20 MG/2 ML ORAL.CONC 110 MG PO (08:57)
[2024-11-06] MEDS: 0.9 % Sodium Chloride Flush 3 ML SYRINGE IVFLUSH (08:59)
[2024-11-06 09:08] VITALS: O2SAT 94
[2024-11-06 11:09] VITALS: PULSE 53; RESP 18; O2SAT 93
[2024-11-06] MEDS: Albuterol/Iprat 2.5/0.5MG 3 ML AMPUL.NEB INHALE (11:09)
[2024-11-06 11:22] VITALS: BP 131/70; PULSE 79; RESP 18; TEMP 36.4; O2SAT 97
--- NOTE | 2024-11-06 11:32 | P.DS_ITS ---
DS: Providers Provider Date of Service: 11/06/24 Date of admission: 11/05/24 14:02 Date of discharge: 11/06/24 Primary care physician: Homar Bush MD DS: Diagnosis Discharge Diagnosis (1) Asthma with exacerbation: Status: Acute DS: Summary Hospital Course Hospital Course: HPI From admission H&P: The patient is a 34-year-old male with a self-reported history of asthma and prior substance use who presents to the emergency room with a 2 day history of progressive shortness of breath and wheezing with intermittent nonproductive cough. The patient reports he used his home inhalers without significant relief and hence he presented to the emergency room. He denies any chest pain or fevers. He denies any sick contacts. In the ED, the patient was treated with multiple rounds of bronchodilators and systemic steroids along with magnesium. He continued to be symptomatic and desaturated as low as 88% on room air. He has been placed on supplemental oxygen and admission has been requested. Viral testing is pending at the time of this note. Hospital course: Patient was placed on supplemental oxygen at 2 L and was started on systemic steroids as well as scheduled and as needed bronchodilators. The patient responded quickly and the morning after admission he was tolerating room air both at rest and with exertion. His respiratory symptoms have also improved. He is feeling better and eager to go home. He will be discharged with a short prednisone course. He has also been given a referral to Pulmonary. Final discharge diagnoses 1. Acute respiratory failure with hypoxia 2. Acute asthma exacerbation 3. Chronic opiate dependence on methadone maintenance therapy Time Attestation Discharge Coordination Time (in mins): less than 30 Quality: Safe Use of Opioids Does Pt have an Active Cancer Diagnosis on the Problem List?: No Quality: Stroke Does the patient have a stroke diagnosis?: No Physical Exam Vital Signs: Vital Signs: Last Vital Signs Temp 97.5 F 11/06/24 11:22 Pulse 79 11/06/24 11:22 Resp 18 11/06/24 11:22 BP 131/70 11/06/24 11:22 Pulse Ox 97 11/06/24 11:22 O2 Del Method Room Air 11/06/24 11:22 O2 Flow Rate 2 11/06/24 07:27 BMI result Body Mass Index 22.2 DS: Data Data Completed and Pending Labs on day of discharge: Laboratory Results - last 24 hr 11/05/24 09:59 Influenza Type A (PCR) NEGATIVE Influenza Type B (PCR) NEGATIVE RSV RNA Qual (PCR) NEGATIVE SARS-CoV-2 RNA (RT-PCR) NEGATIVE Discharge Plan Discharge Anticipated Discharge Date/Time: 11/06/24 11:29 Patient Disposition: Home, Self-Care Referrals: Homar Bush MD [Primary Care Provider] - 1 Week Marvin Montoya MD [Physician] - 1 Week Discharge Medications: New prednisone 20 mg tablet 40 mg PO DAILY Qty: 10 0RF Continued methadone 10 mg/mL Concentrate 110 mg PO DAILY albuterol sulfate 90 mcg/actuation HFA aerosol inhaler 2 puff inhalation Q4-6H PRN (Reason: shortness of breath or wheezing) Qty: 8.5 1RF hydroxyzine HCl 25 mg tablet 25 mg PO TID PRN (Reason: anxiety) albuterol sulfate 2.5 mg /3 mL (0.083 %) solution for nebulization 2.5 mg inhalation Q4-6H PRN (Reason: bronchospasm) Qty: 90 0RF No Action (DME) blood-glucose meter [FreeStyle Lite Meter] Kit Qty: 1 0RF Rx Instructions: As Directed for times a day (DME) lancets [FreeStyle Lancets] 28 gauge misc Qty: 100 0RF Rx Instructions: Test four times a day or as directed. (DME) nebulizers Misc See Rx Instructions .Route Qty: 1 0RF Rx Instructions: As directed Discharge Orders: Discharge Order (Routine); Ordered 11/06/24 Ordered By: Austin Kaur Diet: Advance to usual diet Activity on Discharge: As tolerated Stand Alone Forms: Patient Portal Discharge page Print Language: Indonesian Care Plan Goals: To stay healthy and out of the hospital. Health Concerns: see d/c summary Plan of Treatment: see d/c summary Assessment: see d/c summary
--- NOTE | 2024-11-06 11:41 | MHC.CM.PN ---
Pt has been medically cleared for DC, he will go home via private transport, Plan is self care.
== END 2024-11-06 11:55 | disposition home or self-care (01) ==
LOC: HO.ED 12:47 → HO.EDOVER 14:03 → HO.IMC 15:39
PROVIDERS: Admitting Provider Family Medicine; Emergency Provider Emergency Medicine; PCP Internal Medicine; Visit Provider Family Medicine
DX: J45.41 Moderate persistent asthma with (acute) exacerbation (principal); R05.9 Cough, unspecified; R09.02 Hypoxemia; Z03.818 Encounter for observation for suspected exposure to other biological agents ruled out; Z79.899 Other long term (current) drug therapy; Z79.891 Long term (current) use of opiate analgesic
CPT/HCPCS: 0241U; 71045; 80048; 80076; 82803; 83735; 85025; 94640; 96365; 96375; 96376; 99222; 99285; J2919; J3475

== ENCOUNTER → 2024-11-05 09:43 | Outpatient (BNV) | payer OTHER, SELFPAY | PROVIDERS: Emergency Provider Emergency Medicine; PCP Internal Medicine; Visit Provider Radiology Diagnostic Radiology | DX: R06.00 Dyspnea, unspecified (principal) | CPT/HCPCS: 71045 ==

== ENCOUNTER → 2024-11-05 14:02 | Outpatient (BNV) | payer OTHER, SELFPAY | PROVIDERS: Admitting Provider Family Medicine; Emergency Provider Emergency Medicine; PCP Internal Medicine; Visit Provider Family Medicine | DX: J45.41 Moderate persistent asthma with (acute) exacerbation (principal) | CPT/HCPCS: 99222; 99238 ==